=== PATIENT | male | born 1955 | race Caucasian/White ===

== ENCOUNTER 2022-08-28 09:30 | Outpatient (CLI) | payer MEDICARE, SELFPAY ==
--- OUTSIDE RECORDS SUMMARY | 2022-08-28 13:49 | XMS_ITS | Clinical Summary ---
:1955 Author Organization [facility] [place] [address] Care Team Providers Name Role Phone Dotty Matias Primary Care Provider [phone] Allergies No known active allergies Medications No known medications Active Problems Problem Noted Date Ganglion cyst of wrist 08/23/2013 Serrated adenoma of colon 10/19/2012 Herniated cervical disc 03/02/2012 PPD positive 07/02/2011 Immunizations Name Administration Dates Next Due DTaP 08/21/2005 Hepatitis A (Adult) 07/11/2006, 11/08/2005 Inactivated Polio Vaccine 11/08/2005 Influenza A (H1N1), Inactivated (Age 0212/12/2009 >=3 Years) Influenza, IIV3 (Age >=3 years) 08/23/2013, 07/28/2012, 08/11, 08/24/2009 Meningococcal Vaccine 11/08/2005 Tdap 07/08/2013 Typhoid (injectable) 09/04/2011, 11/08/2005 Yellow Fever 11/08/2005 Family History Medical History Relation Name Comments Arthritis Mother Heart Disease Other Relation Name Status Comments Brother Alive 2 Father (Age 64) massive hrt at tack Mother Alive Other Sister Alive 2 Social History Tobacco Use Types Packs/Day Years Used Date Never Smoker Smokeless Tobacco: Former User Chew Q uit: 11/10/1978 Tobacco Cessation: Counseling Given: No Alcohol Use Standard Drinks/Week Comments Yes 4.2 (1 standard drink = 0.6 oz pure alco hol) Sex Assigned at Date Recorded Not on file Obstetrics History Last Filed Vital Signs Vital Sign Reading Time Taken Comments Blood Pressure 146/74 08/23/2013 11:16 AM CDT Pulse 60 08/23/2013 10:39 AM CDT Temperature 36.4 ??C (97.5 ??F) 08/23/2013 10:39 AM CDT Respiratory Rate - - Oxygen Saturation - - Inhaled Oxygen Concentration - - Weight 83.9 kg (185 lb) 08/23/2013 10:39 AM CDT Height 181.6 cm (5' 11.5) 08/23/2013 10:39 AM CDT Body Mass Index 25.45 08/23/2013 10:39 AM CDT Plan of Treatment Health Maintenance Due Date Last Done Comments COVID-19 vaccine series (#1) 04/01/1956 Depression screening for age 12+ 1968 BMI (ht and wt on same day) for 1974 age 18+ Hepatitis C screening for age 1110/02/1974 18-79 Zoster (shingles) series for age 1110/02/2006 50+ (1 of 2) Lipids for age 45-75 07/02/2016 07/02/2011 Pneumococcal series for age 65+ (1 2021 - PCV) Influenza for age 65+ 07/11/2022 08/23/2013, 07/28/2012, 09/04/2011, Additional history exists Colonoscopy through age 75 09/11/2022 09/11/2012 Tetanus booster 07/08/2023 07/08/2013 Tdap Completed 07/08/2013 Results Not on filefrom Last 3 Months Care Teams Merchandiser Retail Representative Relationship Specialty Start Date End Date Dotty Matias PA PCP - General Family Practice 09/04/[address] [place] [address] [place], [place] [address]
--- OUTSIDE RECORDS SUMMARY | 2022-08-28 13:49 | XMS_ITS | Encounter Summary ---
:1955 [facility] [address] [place] [address] Care Team Providers Name Role Phone Unassigned, Provider Primary Care Provider Unavailable Reason for Visit Reason Comments HYPERTENSION Encounter Details Date Type Department Care Team Description 11/05/2017 Office Visit [facility] Patric lala Essential hypertension [address] (Primary Dx) [place] [phone] Social History Tobacco Use Types Packs/Day Years Used Date Smoking Tobacco: Never Smokeless Tobacco: Never Alcohol Use Standard Drinks/Week Comments Yes 2 (1 standard drink = 0.6 oz pure alcoho l) Sex Assigned at Date Recorded Not on file documented as of this encounter Last Filed Vital Signs Vital Sign Reading Time Taken Comments Blood Pressure 145/99 11/05/2017 4:18 PM UNDERWRITING SALES REPRESENTATIVE Pulse 74 11/05/2017 4:18 PM UNDERWRITING SALES REPRESENTATIVE Temperature 36.5 ??C (97.7 ??F) 11/05/2017 4:18 PM UNDERWRITING SALES REPRESENTATIVE Respiratory Rate 16 11/05/2017 4:18 PM UNDERWRITING SALES REPRESENTATIVE Oxygen Saturation - - Inhaled Oxygen Concentration - - Weight - - Height - - Body Mass Index - - documented in this encounter Patient Instructions Patient InstructionsPatty Lucero PA-C - 11/05/2017 4:20 PM CST Consider trying Magnesium 250 mg, once to twice daily ( beware of diarrhea if dose is too high) for high blood pressure. Try following DASH diet. Yaneth will contact you with lab results. RWRITING SALES REPRESENTATIVE documented in this encounter Progress Notes Sebastian Garcia - 11/06/2017 8:17 PM UNDERWRITING SALES REPRESENTATIVE Addended by: SEBASTIAN GARCIA on: 11/06/2017 08:17 PM Modules accepted: Orders RWRITING SALES REPRESENTATIVE Patty Lucero PA-C - 11/05/2017 4:20 PM CST SUBJECTIVE: Jake Cuello is a 62 y.o. male presenting to the [facility] today for a lab draw, recheck ofblood pressure and medications. Office Visit on 10/24/2017 Component Date Value Ref Range Status ??? Creatinine 10/24/2017 1.40* 0.73 - 1.18 mg/dl Final ? ? GFR, Estimated 10/24/2017 54* >60 ml/min/1.73m2 Final Comment: The National Kidney Disease Education Program suggests measuring Cystatin C in patients with eGFRcrea of 45 to 59 ml/min/1.73^2 who do not have other markers of kidney damage (i.e.,elevated urine Albumin/Creatinine Ratio or a prior Cystatin C confirming the presence of Chronic Kidney Disease.) ? ? GFR, Est., If Black 10/24/2017 >60 >60 ml/min/1.73m2 Final ??? Potassium 10/24/2017 4.2 3.5 - 5.1 mmol/L Final ??? Sodium 10/24/2017 138 136 - 145 mmol/L Final ??? HIV 1/2 AG/AB 4thGEN 10/24/2017 Negative (Non Reactive) NEGNR Final HIV-1 p24 Ag and HIV-1/HIV-2 Ab not detected. ??? Anti-HCV 10/24/2017 Negative (Non Reactive) NEGNR Final Comment: Antibodies to HCV not detected. Does not exclude the possibility of exposure to HCV. OBJECTIVE: BP (!) 145/99 Pulse 74 Temp 97.7 ??F (36.5 ??C) (Oral) Resp 16 Examination: no exam performed today. Lab drawn without difficulty. ASSESSMENT: ICD-10-CM 1. Essential hypertension (HRC) I10 PLAN: Lab results to be relayed to patient by Yaneth Flower PA-C, when they are available. Continue on current medications. Consider trying Magnesium 250 mg, once to twice daily ( beware of diarrhea if dose is too high) for high blood pressure. Try following DASH diet. RWRITING SALES REPRESENTATIVE documented in this encounter Plan of Treatment Not on filedocumented as of this encounter Procedures Procedure Name Priority Date/Time Associated Diagnosis Comme nts CREATININE / GFR Routine 11/05/2017 4:20 PM Essential hyperten lissy Results for this UNDERWRITING SALES REPRESENTATIVE procedure are i n the results section. POTASSIUM Routine 11/05/2017 4:20 PM Essential hypertension Results for this UNDERWRITING SALES REPRESENTATIVE procedure are i n the results section. documented in this encounter Results Potassium (11/05/2017 4:20 PM UNDERWRITING SALES REPRESENTATIVE) P athologist Signature Potassium 3.8 3.5 - 5.1 [facility] mmol/L Specimen Anatomical Collection Method Collection Time Receive d Time (Source) Location / / Volume Laterality 11/05/2017 4:20 PM 7 8:26 UNDERWRITING SALES REPRESENTATIVE PM UNDERWRITING SALES REPRESENTATIVE Narrative [facility] - 11/06/2017 8:[address] Performed at [facility], [address] [place] [address] ??[id number] Diane Flower PA-C LAB_1 Performing Organization Address [facility] Phon e Number [facility] [phone] Creatinine / GFR (11/05/2017 4:20 PM UNDERWRITING SALES REPRESENTATIVE) Analysis Performed At Patho logist Time Signature Creatinine 0.98 0.73 - [facility] 1.18 mg/dl [facility] GFR, Estimated >60 >60 [facility] ml/min/1.7 [facility] 3m2 GFR, Est., If >60 >60 [facility] Black ml/min/1.7 [facility] 3m2 Specimen Anatomical Collection Method Collection Time Receive d Time (Source) Location / / Volume Laterality 11/05/2017 4:20 PM 7 8:26 UNDERWRITING SALES REPRESENTATIVE PM UNDERWRITING SALES REPRESENTATIVE Narrative [facility] - 11/06/2017 8:[address] Performed at [facility], [address] [place] [address] ??[id number] Diane Flower PA-C LAB_1 Performing Organization Address City/State/ZIP Code Phon e Number [facility] [phone] documented in this encounter Visit Diagnoses Diagnosis Essential hypertension (HRC) - Primary Unspecified essential hypertension documented in this encounter Care Teams Roll Machine Operator Relationship Specialty Start Date End Date Unassigned, Provider PCP - General 08/13/00 05/31/[address] [place] [phone] documented as of this encounter
--- OUTSIDE RECORDS SUMMARY | 2022-08-28 13:49 | XMS_ITS | Encounter Summary ---
:1955 Author Organization [facility] [facility] Address [address] [address] Care Team Providers Name Role Phone John Meyer MD Primary Care Provider Reason for Visit Reason Comments Refill BP CHECK, SHOT,FLU Encounter Details Date Type Department Care Team Description 07/26/2020 Office Visit [facility] Essential hypertension (Prim maria dolores Dx); [address] [place] [address] Social History Tobacco Use Types Packs/Day Years Used Date Smoking Tobacco: Never Smokeless Tobacco: Never Alcohol Use Standard Drinks/Week Comments Not Currently 0 (1 standard drink = 0.6 oz pure alcoho l) Sex Assigned at Date Recorded Not on file documented as of this encounter Last Filed Vital Signs Vital Sign Reading Time Taken Comments Blood Pressure 122/81 07/26/2020 1:29 PM CDT Pulse 62 07/26/2020 1:28 PM CDT Temperature - - Respiratory Rate - - Oxygen Saturation - - Inhaled Oxygen Concentration - - Weight - - Height - - Body Mass Index - - documented in this encounter Patient Instructions Patient InstructionsDiane Flower PA-C - 07/26/2020 1:20 PM CDT Continue Lisinopril 20 mg-Hydrochlorothiazide 12.5 mg, one tablet once daily. You are due for fasting cholesterol check. If your employer does not check fasting cholesterol this fall, please return to [facility] fasting 12 hours for lab test. Follow up to clinic as needed. Diane Flower PA-C [facility] [address] [place] [address] Appointment Line Phone number: [phone] Fax number: [phone] documented in this encounter Progress Notes Diane Flower PA-C - 07/26/2020 1:20 PM CDT Chief Complaint: Chief Complaint Patient presents with ??? Refill ??? BP CHECK,MD ??? SHOT,FLU HPI: Jake Cuello is a 64 y.o. old male who presents to the [facility] for a blood pressure check. He denies chest pain, SOB, abdominal pain, back pain or leg edema. He is taking Lisinopril 20 mg one tablet once daily and Hydrochlorothiazide 12.5 mg one tablet once daily. He tolerates medications well without problems or complications. He does request refill of both medications combined asone tablet instead of two tablets daily. He states his home blood pressure has been in normal range with most daily readings being in 110-120 range for systolic blood pressure and 80's for diastolic blood pressure. Denies any concerns today. He also presents to the [facility] for a flu shot. Pt denies any allergies to vaccines or recent illness. Pt answered no to all Influenza Vaccine Screening questions. I have reviewed active problem list, medication list, allergies, health maintenance, lab results. Physical Exam: Filed Vitals: 07/26/20 1328 07/26/20 1329 BP: 128/72 122/81 Pulse: 62 2nd reading taken on patient's home blood pressure cuff. Gen: Pt A&O x 3 and appears in no distress. Heart: RRR without murmurs. Lungs: CTA bilaterally, normal respiratory effort. Ext: no leg edema Diagnosis: ICD-10-CM 1. Essential hypertension I10 lisinopril-hydroCHLOROthiazide (PRINZIDE) 20-12.5 MG tablet 2. Needs flu shot Z23 Influenza IIV4 (Quadrivalent) 0.5mL (74993) Assessment/Plan: Blood pressure is at goal. Pt advised to continue taking the medications as prescribed and to returnto this clinic as needed for medication refills or sooner if new symptoms develop. He agreed with the treatment plan. He does want Lisinopril 20 mg - Hydrochlorothiazide 12.5 mg combined as one tablet once daily so newRx was e-prescribed to [facility] pharmacy. Fasting lipid panel is due. Patient states this is done annually by employer. Advised patient to bring results to [facility] or return to [facility] fasting for fasting lipid panel check. Follow up to clinic as needed. Flu vaccine administered in the left deltoid and pt tolerated the procedure well. Vaccine information sheet Given. Discussed common side effects of the injection.??Return to the clinic if unexpected symptoms developor if there are any other concerns. Diagnosis: ICD-10-CM 1. Essential hypertension I10 lisinopril-hydroCHLOROthiazide (PRINZIDE) 20-12.5 MG tablet 2. Needs flu shot Z23 Influenza IIV4 (Quadrivalent) 0.5mL (63046) documented in this encounter Plan of Treatment Not on filedocumented as of this encounter Visit Diagnoses Diagnosis Essential hypertension (HRC) - Primary Unspecified essential hypertension Needs flu shot Need for prophylactic vaccination and in oculation against influenza documented in this encounter Care Teams Professor Of Voice Relationship Specialty Start Date End Date John Meyer MD PCP - General Family Practice 06/01/20 [address] [place] [id number] documented as of this encounter
--- OUTSIDE RECORDS SUMMARY | 2022-08-28 13:49 | XMS_ITS | Encounter Summary ---
:1955 Author Organization [employer] Address [address] [address] Care Team Providers Name Role Phone John Meyer MD Primary Care Provider Reason for Visit Reason Comments QUESTIONS, REFERRAL Encounter Details Date Type Department Care Team Description 07/19/2020 Telephone [facility] Unassigned, Provider QUESTIONS, REFERRAL [address] [address] [place] [address] Social History Tobacco Use Types Packs/Day Years Used Date Smoking Tobacco: Never Smokeless Tobacco: Never Alcohol Use Standard Drinks/Week Comments Not Currently 0 (1 standard drink = 0.6 oz pure alcoho l) Sex Assigned at Date Recorded Not on file documented as of this encounter Nursing Notes Diane Flower PA-C - 07/19/2020 12:01 PM CDT Returned call to patient. Phone number listed states Destination number is not assigned. No answerfrom patient. Voicemail message is not available. Referral orders can be printed and given to patient or can be faxed directly to health care facilityof patient's choosing if fax number is given. Diane Flower PA-C Noam Garvin - 07/19/2020 10:05 AM CDT Miscellaneous Questions [Appt Center: If this call is after 3 p.m., communicate to patient: If we are not able to get back to you by the end of the day and your symptoms worsen please contact the Careline at [phone] OR at .] Is this a question/concern or an FYI? Question/Concern What is your question or concern? PT STATED TWO REFERRALS WERE MADE FOR HIM A WHILE BACK POSS ON OR BEFORE 06/15/2020-- FOR A COLONOSCOPY & DERMATOLOGY DEPARTMENT. PT MISPLACED THE HARD COPY OF THOSE REFERRALS. PT IS REQUESTING FOR ANOTHER HARD COPY OF THOSE REFERRALS. PT IS WILLING TO PICK THEM UP. Have you recently been seen for this? Yes: A WHILE BACK Is it okay to leave a detailed message on your voicemail? Yes Noam Garvin documented in this encounter Plan of Treatment Not on filedocumented as of this encounter Visit Diagnoses Not on filedocumented in this encounter Care Teams Public Health Teacher Relationship Specialty Start Date End Date John Meyer MD PCP - General Family Practice 06/01/20 [address] [place] [phone] documented as of this encounter
--- OUTSIDE RECORDS SUMMARY | 2022-08-28 13:49 | XMS_ITS | Clinical Summary ---
:1955 Author Organization [facility] Address [address] [place] [address] Care Team Providers Name Role Phone John Meyer MD Primary Care Provider Source Comments You are receiving this document as you are listed as the primary care provider,follow-up provider, or the patient has been referred to you for consultation.This is in compliance with the Medicare and Medicaid EHR Incentive Program,which states Providers who transition their patient to another setting of careor provider of care or refers their patient to another provider of care shouldprovide summarycare record for each transition of care or referral. [facility] Allergies No known active allergies Medications Medication Sig Dispensed Refills Start Date End Date Status magnesium oxide (AKA MAG-OX 250 mg two 0 Active 400) 250 MG tablet times a day with meals. ibuprofen (MOTRIN) 200 MG Take 400 mg 0 Active tablet by mouth two times daily as needed for Pain. atorvastatin (LIPITOR) 40 Take 1 Tablet 90 Tablet 3 06/01/2020 Active MG tabletIndications: by mouth Hypercholesterolemia daily. lisinopril-hydroCHLOROthiaz Take 1 Tablet 90 Tablet 3 07/26/20 20 Active darshana (PRINZIDE) 20-12.5 MG by mouth tabletIndications: daily. Essential hypertension (HRC) Active Problems Problem Noted Date Basal cell carcinoma (BCC) of skin of nose 10/30/2020 Overview: Excision 08/2020, per patient Disorder of rotator cuff 09/23/2018 Hypercholesterolemia 10/29/2017 Essential hypertension 10/09/2017 Adenomatous polyp of colon 10/19/2012 Immunizations Name Administration Dates Next Due DTaP 08/21/2005 Flu Vac (3+ yrs) 08/23/2013, 07/28/2012, 09/04/2011, 08/24/2009 Flu Vac Preserv Free (3+yrs) 09/04/2011, 08/24/2009 Fluzone Qiv Multidose Vial 0.25 (6-35 07/23/2016 Mos) HepA Adult (19+ yrs) 07/11/2006, 11/08/2005 Hepatitis B - Surface Antibody 11/09/1995 Positive IPV (Polio) 11/08/2005 Influenza [id number] 12/12/2009 Influenza IIV4 (Quadrivalent) 0.5mL 07/26/2020, 08/18/2019, 07/25/2018, ([id number]) 10/09/2017 Influenza, Unspecified Formulation 07/25/2018 MPSV4 (Menomune) 11/08/2005 Meningococcal MCV4, Unspecified 11/08/2005 Formulation Pfizer (Comirnaty) COVID-19, 12+ Yrs 02/13/2021, 01/23/2021 Purple Top Td 08/21/2005 Tdap 07/08/2013 Typhoid (Typhim Vi, IM) 09/04/2011, 11/08/2005 Typhoid (Vivotif, Oral) 11/08/2005 Typhoid, Unspecified Formulation 11/08/2005 YF (Yellow Fever) 11/08/2005 Zoster RZV (Shingrix) 11/24/2018, 07/25/2018 Family History Medical History Relation Name Comments Coronary Artery Disease Father Relation Name Status Comments Father (Age 64) Myocardial inf arction Social History Tobacco Use Types Packs/Day Years Used Date Smoking Tobacco: Never Smokeless Tobacco: Never Alcohol Use Standard Drinks/Week Comments Not Currently 0 (1 standard drink = 0.6 oz pure alcoho l) Sex Assigned at Date Recorded Not on file Last Filed Vital Signs Vital Sign Reading Time Taken Comments Blood Pressure 132/71 10/30/2020 9:32 AM ANALYSIS EVALUATOR Pulse 43 10/30/2020 9:32 AM ANALYSIS EVALUATOR Temperature 36.5 ??C (97.7 ??F) 11/05/2017 4:18 PM ANALYSIS EVALUATOR Respiratory Rate 16 11/05/2017 4:18 PM ANALYSIS EVALUATOR Oxygen Saturation - - Inhaled Oxygen Concentration - - Weight 82.1 kg (181 lb) 10/30/2020 9:24 AM ANALYSIS EVALUATOR Height 181 cm (5' 11.25) 10/30/2020 9:24 AM ANALYSIS EVALUATOR Body Mass Index 25.07 10/30/2020 9:24 AM ANALYSIS EVALUATOR Plan of Treatment Health Maintenance Due Date Last Done Comments PSA Screening Discussion 1955 Prediabetes: HGBA1C 1955 Colonoscopy 09/11/2017 09/11/2012 (Completed), 09/11/2012 (Completed) COVID-19 Vaccine (3 - 04/10/2021 02/13/2021, 01/23/2021 Booster for Pfizer series) Adult Preventive Visit 06/01/2021 06/01/2020, 06/01/2020 (Completed) Med Monitoring Renal 06/15/2021 06/15/2020, 11/05/2017, (Creatinine) 10/24/2017 Med Monitoring Renal 06/15/2021 06/15/2020, 11/05/2017, (Potassium) 10/24/2017 Med Monitoring Renal 06/15/2021 06/15/2020, 10/24/2017 (Sodium) Pneumococcal 65+ Yrs (1 - 2021 PCV) Cholesterol 10/30/2021 10/30/2020, 08/10/2017 (Completed) Influenza (#1) 2022 07/26/2020, 08/18/2019, 07/25/2018, Additional history exists DTaP/Tdap/Td (2 - Tdap) 07/08/2023 07/08/2013, 08/21/2005, 08/21/2005 IPV (Polio) Aged Out 11/08/2005 No longer eligib le based on patient 's age to complete this topic MCV4 Aged Out 11/08/2005, 11/08/2005 No longer eligible based on patient 's age to complete this topic HepA Aged Out 07/11/2006, 11/08/2005 No longer eligible based on patient 's age to complete this topic Hep C Screening (Preventive Completed 10/24/2017, 10/24/20 17 Services) (Completed) Zoster/Shingles Completed 11/24/2018, 07/25/2018 Hib Aged Out No longer eligib le based on patient 's age to complete this topic [phone] ([address]) [address] [phone] [place] [address] (Work) [id number] Jake Cuello Personal/Family Self 1955 [phone] ([address]) [address] [phone] [place] (Work) [address] Jake Cuello [facility] Self 1955 [address] (Home) [place] [address] [phone] [place] [address] (Work) [id number] Care Teams Spray Applicator Relationship Specialty Start Date End Date John Meyer MD PCP - General Family Practice 06/01/20 [address] [place] [phone]
--- OUTSIDE RECORDS SUMMARY | 2022-08-28 13:49 | XMS_ITS | Encounter Summary ---
:1955 Author Organization [facility] Address [address] [place] [address] Care Team Providers Name Role Phone Unassigned, Provider Primary Care Provider Unavailable Reason for Visit Reason Comments BP CHECK,MD Encounter Details Date Type Department Care Team Description 10/29/2017 Office Visit [facility] Patric lala Essential hypertension (Prim maria dolores Dx); [address] [place] [address] Social History Tobacco Use Types Packs/Day Years Used Date Smoking Tobacco: Never Smokeless Tobacco: Never Alcohol Use Standard Drinks/Week Comments Yes 2 (1 standard drink = 0.6 oz pure alcoho l) Sex Assigned at Date Recorded Not on file documented as of this encounter Last Filed Vital Signs Vital Sign Reading Time Taken Comments Blood Pressure 127/90 10/29/2017 5:16 PM FINISH REPAIR WORKER Pulse 57 10/29/2017 5:16 PM FINISH REPAIR WORKER Temperature - - Respiratory Rate - - Oxygen Saturation - - Inhaled Oxygen Concentration - - Weight - - Height - - Body Mass Index - - documented in this encounter Patient Instructions Patient InstructionsDiane Flower PA-C - 10/29/2017 5:00 PM FINISH REPAIR WORKER Discontinue Lisinopril and Hydrochlorothiazide. Start Triamterene-Hydrochlorothiazide 37.5-25 mg, one tablet once daily. Limit sodium in diet. Aim for 7-9 hours of sleep daily. Due to high cholesterol and high blood pressure, your risk of heart disease is 13.6% in next 10 years. This is significant and it is recommended you also start cholesterol lowering medication. Start Atorvastatin 40 mg, one tablet once daily at bedtime. Return to clinic in one week to recheck blood pressure, medications and lab. Follow up to clinic in one month to refill medications. Follow up to clinic in 3 months to recheck fasting cholesterol. Recommend Routine Health Maintenance. Diane Flower PA-C [facility] [address], [address] [place] [address] Appointment Line Phone number: [phone] Fax number: [phone] SH REPAIR WORKER documented in this encounter Progress Notes Diane Flower PA-C - 10/29/2017 5:00 PM CST SUBJECTIVE: [facility]. Patient had fasting labs done in August 2017 with elevated cholesterol and elevated blood pressure.He presented here 10/09 and was started on Lisinopril 20 mg and then Hydrochlorothiazide was added on 10/24. His creatinine was elevated on 10/24, despite normal Creatinine prior to being on Lisinopril. Blood pressure remains uncontrolled per patient. He denies any problems or concerns however. Deniesheadaches, edema, lightheadedness/dizziness, nausea/vomiting or any other concerns. Allergies, medications and histories reviewed and updated. OBJECTIVE: BP (!) 127/90 Pulse (!) 57 Filed Vitals: 10/29/17 1710 10/29/17 1716 BP: (!) 155/87 (!) 127/90 Pulse: (!) 57 (!) 57 He appears well, in no apparent distress. Alert and oriented times three, pleasant and cooperative. Vital signs are as noted. Normal respiratory effort. No peripheral edema. ASSESSMENT: Jake was seen today for bp checkmd. Diagnoses and all orders for this visit: Essential hypertension (HRC) - triamterene-hydrochlorothiazide (MAXZIDE-25) 37.5-25 MG tablet; Take 1 Tab by mouth daily. - Creatinine / GFR; Future - Potassium; Future Hypercholesterolemia - atorvastatin (LIPITOR) 40 MG tablet; Take 1 Tab by mouth daily. PLAN: Due to blood pressure not controlled and recent increase in Creatinine on Lisinopril, we will discontinue Lisinopril and Hydrochlorothiazide. Start Triamterene-Hydrochlorothiazide 37.5-25 mg, one tablet once daily. #30 tabs dispensed. Encouraged supportive care measures: Limit sodium in diet. Aim for 7-9 hours of sleep daily. Due to high cholesterol and high blood pressure, your risk of heart disease is 13.6% in next 10 years. This is significant and it is recommended you also start cholesterol lowering medication. Start Atorvastatin 40 mg, one tablet once daily at bedtime. #30 tabs dispensed. Return to clinic in one week to recheck blood pressure, medications and lab. Follow up to clinic in one month to refill medications. Follow up to clinic in 3 months to recheck fasting cholesterol. Recommend Routine Health Maintenance. SH REPAIR WORKER documented in this encounter Plan of Treatment Not on filedocumented as of this encounter Results Potassium (11/05/2017 4:20 PM FINISH REPAIR WORKER) athologist Signature Potassium 3.8 3.5 - 5.1 [facility] mmol/L Specimen Anatomical Collection Method Collection Time Receive d Time (Source) Location / / Volume Laterality 11/05/2017 4:20 PM 7 8:26 FINISH REPAIR WORKER PM FINISH REPAIR WORKER Narrative [facility] - 11/06/2017 8:[address] Performed at [facility], [address] [place] [address] ??[phone] Diane Flower PA-C LAB_1 Performing Organization Address City/State/ZIP Code Phon e Number [facility] [phone] Creatinine / GFR (11/05/2017 4:20 PM FINISH REPAIR WORKER) Analysis Performed At Patho logist Time Signature Creatinine 0.98 0.73 - [facility] 1.18 mg/dl [facility] GFR, Estimated >60 >60 [facility] ml/min/1.7 [facility] 3m2 GFR, Est., If >60 >60 [facility] Black ml/min/1.7 [facility] 3m2 Specimen Anatomical Collection Method Collection Time Receive d Time (Source) Location / / Volume Laterality 11/05/2017 4:20 PM 7 8:26 FINISH REPAIR WORKER PM FINISH REPAIR WORKER Narrative [facility] - 11/06/2017 8:[address] Performed at [facility], [address] [place] [address] ??[phone] Diane Flower PA-C LAB_1 Performing Organization Address City/State/ZIP Code Phon e Number [facility] [phone] documented in this encounter Visit Diagnoses Diagnosis Essential hypertension (HRC) - Primary Unspecified essential hypertension Hypercholesterolemia Pure hypercholesterolemia Essential hypertension (HRC) - Primary Unspecified essential hypertension documented in this encounter Care Teams Physician Pediatrician Relationship Specialty Start Date End Date Unassigned, Provider PCP - General 08/13/00 05/31/[address] [place] [id number] documented as of this encounter
--- OUTSIDE RECORDS SUMMARY | 2022-08-28 13:49 | XMS_ITS | Encounter Summary ---
:1955 Author Organization [facility] Address [address] [address] Care Team Providers Name Role Phone Unassigned, Provider Primary Care Provider Unavailable Reason for Visit Reason Comments BP CHECK,MD Encounter Details Date Type Department Care Team Description 11/12/2017 Office Visit [facility] Patric lala Essential hypertension [address] (Primary Dx) [place] [address] Social History Tobacco Use Types Packs/Day Years Used Date Smoking Tobacco: Never Smokeless Tobacco: Never Alcohol Use Standard Drinks/Week Comments Yes 2 (1 standard drink = 0.6 oz pure alcoho l) Sex Assigned at Date Recorded Not on file documented as of this encounter Last Filed Vital Signs Vital Sign Reading Time Taken Comments Blood Pressure 138/93 11/12/2017 4:06 PM WATER/WASTEWATER ENGINEER Pulse 77 11/12/2017 4:06 PM WATER/WASTEWATER ENGINEER Temperature - - Respiratory Rate - - Oxygen Saturation - - Inhaled Oxygen Concentration - - Weight - - Height - - Body Mass Index - - documented in this encounter Progress Notes Diane Flower PA-C - 11/12/2017 3:40 PM CST SUBJECTIVE: Jake Cuello presents to [facility] for blood pressure recheck. History of Hypertension. He started Triamterene-Hydrochlorothiazide 37.5-25 mg, one tablet once daily, 2 weeks ago and presents today to recheck blood pressure. He states he checked his blood pressure once in past two weeks and it was around 135/85 per patient. He is tolerating medication well withoutproblems or concerns. Denies headaches, vision changes, edema, nausea/vomiting, chest pain, lightheadedness, muscle/joint aches or any other concerns today. He otherwise feels well. Allergies, medications and histories reviewed and updated. OBJECTIVE: BP (!) 138/93 Pulse 77 Filed Vitals: 11/12/17 1553 11/12/17 1606 BP: (!) 146/91 (!) 138/93 Pulse: 69 77 He appears well, in no apparent distress. Alert and oriented times three, pleasant and cooperative. Vital signs are as noted. Skin normal. Normal respiratory effort. No peripheral edema. ASSESSMENT: Jake was seen today for bp check,. Diagnoses and all orders for this visit: Essential hypertension (HRC) PLAN: Blood pressure still elevated today. Patient states blood pressure is lower at home. Home cuff was checked with clinic cuff previously and showed to be similar but slightly higher. Patient is to check blood pressure at home everyday. Given blood pressure card for reporting. Return to clinic in one week to recheck blood pressure and review home readings. Patient is still due to routine health maintenance. Discussed establishing care with primary care provider and discussed that if blood pressure remains elevated that we will have to change blood pressure medication. Encouraged return to clinic sooner if needed. R/WASTEWATER ENGINEER documented in this encounter Plan of Treatment Not on filedocumented as of this encounter Visit Diagnoses Diagnosis Essential hypertension (HRC) - Primary Unspecified essential hypertension documented in this encounter Care Teams Seafood Team Member Relationship Specialty Start Date End Date Unassigned, Provider PCP - General 08/13/00 05/31/[address] [place] [id number] documented as of this encounter
--- OUTSIDE RECORDS SUMMARY | 2022-08-28 13:49 | XMS_ITS | Encounter Summary ---
:1955 Author Organization [employer] Address [address], [place] [address] Care Team Providers Name Role Phone Unassigned, Provider Primary Care Provider Unavailable Reason for Visit Reason Comments BP CHECK,MD Encounter Details Date Type Department Care Team Description 11/19/2017 Office Visit [facility] Essential hypertension [address] (Primary Dx) [place] [address] Social History Tobacco Use Types Packs/Day Years Used Date Smoking Tobacco: Never Smokeless Tobacco: Never Alcohol Use Standard Drinks/Week Comments Yes 2 (1 standard drink = 0.6 oz pure alcoho l) Sex Assigned at Date Recorded Not on file documented as of this encounter Last Filed Vital Signs Vital Sign Reading Time Taken Comments Blood Pressure 132/88 11/19/2017 3:47 PM ENGINE EMISSION TECHNICIAN Pulse 64 11/19/2017 3:47 PM ENGINE EMISSION TECHNICIAN Temperature - - Respiratory Rate - - Oxygen Saturation - - Inhaled Oxygen Concentration - - Weight - - Height - - Body Mass Index - - documented in this encounter Patient Instructions Patient InstructionsDiane Flower PA-C - 11/19/2017 3:40 PM ENGINE EMISSION TECHNICIAN Discontinue Triamterene-Hydrochlorothiazide medication. Start Losartan 50 mg, one tablet once daily. Start Hydrochlorothiazide 12.5 mg, one tablet once daily. Take both tablets together in the morning. Return to clinic in one week to recheck blood pressure. Follow up sooner with any problems or concerns. Diane Flower PA-C [email or web address] [address], [address] [place] [address] Appointment Line Phone number: [phone] Fax number: [phone] NE EMISSION TECHNICIAN documented in this encounter Progress Notes Diane Flower PA-C - 11/19/2017 3:40 PM CST SUBJECTIVE: Jake Cuello presents to [facility] for blood pressure check. He has history of Hypertension. He currently takes Triamterene 37.5 mg - Hydrochlorothiazide 25 mg, one tablet once daily. He tolerates medication well but notes blood pressure remains elevated with his blood pressure readings at home being in 140-150 range for systolic blood pressure and diastolic blood pressure being in mid to upper 80's range. He has not noticed a change in blood pressure with taking new medication. He has tried Lisinopril previously but this medication caused lab abnormalities in creatinine/GFR which resolved with discontinuing Lisinopril. Denies headaches, lightheadedness/dizziness, vision changes, nausea/vomiting chest pain or any other symptoms. Allergies, medications and histories reviewed and updated. OBJECTIVE: BP 132/88 Pulse 64 Filed Vitals: 11/19/17 1544 11/19/17 1547 BP: (!) 150/84 132/88 Pulse: (!) 58 64 He appears well, in no apparent distress. Alert and oriented times three, pleasant and cooperative. Vital signs are as noted. Skin normal. Normal respiratory effort. No peripheral edema. ASSESSMENT: Jake was seen today for bp check,. Diagnoses and all orders for this visit: Essential hypertension (HRC) - losartan (COZAAR) 50 MG tablet; Take 1 Tab by mouth daily. PLAN: Discontinue Triamterene-Hydrochlorothiazide medication. Start Losartan 50 mg, one tablet once daily. See EPIC order. Start Hydrochlorothiazide 12.5 mg, one tablet once daily. Patient still has a bottle of this medication at home. Take both tablets together in the morning. Return to clinic in one week to recheck blood pressure. Follow up sooner with any problems or concerns. NE EMISSION TECHNICIAN documented in this encounter Plan of Treatment Not on filedocumented as of this encounter Visit Diagnoses Diagnosis Essential hypertension (HRC) - Primary Unspecified essential hypertension documented in this encounter Care Teams Integrated Logistics Support Manager Relationship Specialty Start Date End Date Unassigned, Provider PCP - General 08/13/00 05/31/[address] [place] [id number] documented as of this encounter
--- OUTSIDE RECORDS SUMMARY | 2022-08-28 13:49 | XMS_ITS | Encounter Summary ---
:1955 Author Organization [employer] Address [address], [place] [address] Care Team Providers Name Role Phone Unassigned, Provider Primary Care Provider Unavailable Reason for Visit Reason Comments BP CHECK,MD Encounter Details Date Type Department Care Team Description 10/24/2017 Office Visit [facility] Patric lala Essential hypertension (Prim maria dolores Dx); [address] Screening for human immunode ficiency virus; [place] [address] Need for hepatitis C screeni ng test [phone] Social History Tobacco Use Types Packs/Day Years Used Date Smoking Tobacco: Never Smokeless Tobacco: Never Alcohol Use Standard Drinks/Week Comments Yes 2 (1 standard drink = 0.6 oz pure alcoho l) Sex Assigned at Date Recorded Not on file documented as of this encounter Last Filed Vital Signs Vital Sign Reading Time Taken Comments Blood Pressure 134/86 10/24/2017 2:36 PM AGRICULTURE SALES ACCOUNT MANAGER Pulse 60 10/24/2017 2:36 PM AGRICULTURE SALES ACCOUNT MANAGER Temperature - - Respiratory Rate - - Oxygen Saturation - - Inhaled Oxygen Concentration - - Weight - - Height - - Body Mass Index - - documented in this encounter Patient Instructions Patient InstructionsDiane Flower PA-C - 10/24/2017 2:20 PM AGRICULTURE SALES ACCOUNT MANAGER Start Hydrochlorothiazide 12.5 mg, one tablet once daily. Continue Lisinopril 20 mg, one tablet once daily. Take medications together. Labs pending. You will be notified by phone with any lab abnormalities. Continue low sodium diet. Check blood pressure daily at home. Return to clinic in 1-2 weeks to recheck blood pressure. Return to clinic sooner if needed. Diane Flower PA-C [facility] [address], [address] [place] [address] Appointment Line Phone number: [phone] Fax number: [phone] CULTURE SALES ACCOUNT MANAGER documented in this encounter Progress Notes Leana Larsen - 10/24/2017 8:23 PM AGRICULTURE SALES ACCOUNT MANAGER Addended by: LEANA LARSEN on: 10/24/2017 08:23 PM Modules accepted: Orders CULTURE SALES ACCOUNT MANAGER Diane Flower PA-C - 10/24/2017 2:20 PM CST SUBJECTIVE: [facility]. History of Hypertension. He takes Lisinopril 20 mg, one tablet once daily. He started medication twoweeks ago and tolerates medication well without problems or concerns. He has been checking blood pressure at home and states his readings have been in 140-145/80's range. He denies headaches, lightheadedness, cough, edema, nausea/vomiting, vision changes or any other concerns today. Allergies, medications and histories reviewed and updated. OBJECTIVE: BP (!) 150/84 Pulse (!) 56 Checked blood pressure on patient's cuff at same time as clinic check: 156/90 Filed Vitals: 10/24/17 1419 10/24/17 1436 BP: (!) 150/84 134/86 Pulse: (!) 56 60 He appears well, in no apparent distress. Alert and oriented times three, pleasant and cooperative. Vital signs are as noted. Skin without rashes with normal skin turgor. Normal respiratory effort. No peripheral edema. ASSESSMENT: Jake was seen today for bp check,. Diagnoses and all orders for this visit: Essential hypertension (HRC) - Creatinine / GFR; Future - Potassium; Future - Sodium; Future - hydroCHLOROthiazide 12.5 MG capsule; Take 1 Cap by mouth daily. Screening for human immunodeficiency virus - HIV 1/2 Ag/Ab 4th Generation; Future Need for hepatitis C screening test - Hepatitis C Antibody, with Reflex; Future PLAN: Start Hydrochlorothiazide 12.5 mg, one tablet once daily. Dispensed #30 tabs. Continue Lisinopril 20 mg, one tablet once daily. Take medications together. Labs pending. You will be notified by phone with any lab abnormalities. Continue low sodium diet. Check blood pressure daily at home. Return to clinic in 1-2 weeks to recheck blood pressure. Return to clinic sooner if needed. CULTURE SALES ACCOUNT MANAGER documented in this encounter Plan of Treatment Not on filedocumented as of this encounter Procedures Procedure Name Priority Date/Time Associated Diagnosis Comme nts HIV 1/2 AG/AB 4TH Routine 10/24/2017 2:20 Screening for human Results for this GEN PM AGRICULTURE SALES ACCOUNT MANAGER immunodeficiency virus proce dure are in the results section. CREATININE / GFR Routine 10/24/2017 2:20 Essential hypertensio n Results for this PM AGRICULTURE SALES ACCOUNT MANAGER procedure are i n the results section. HEPATITIS C Routine 10/24/2017 2:20 Results for this ANTIBODY, WITH PM AGRICULTURE SALES ACCOUNT MANAGER procedure are in REFLEX the results section. SODIUM Routine 10/24/2017 2:20 Essential hypertension Re sults for this PM AGRICULTURE SALES ACCOUNT MANAGER procedure are i n the results section. POTASSIUM Routine 10/24/2017 2:20 Essential hypertension Re sults for this PM AGRICULTURE SALES ACCOUNT MANAGER procedure are i n the results section. documented in this encounter Results Hepatitis C Antibody, with Reflex (10/24/2017 2:20 PM AGRICULTURE SALES ACCOUNT MANAGER) [facility] Method Time Signature Anti-HCV Negative (Non NEGNR [facility] Comment: Antibodies to HCV not detected. Does not exclude the possibility of exposure to HCV. Specimen Anatomical Collection Method Collection Time Receive d Time (Source) Location / / Volume Laterality 10/24/2017 2:20 PM 7 8:27 AGRICULTURE SALES ACCOUNT MANAGER PM AGRICULTURE SALES ACCOUNT MANAGER Narrative [facility] - 10/24/2017 9:[address] Performed at [facility], [address] [place] [phone] Diane Flower PA-C LAB_1 Performing Organization Address City/State/ZIP Code Phon e Number [facility] [phone] HIV 1/2 Ag/Ab 4th Generation (10/24/2017 2:20 PM AGRICULTURE SALES ACCOUNT MANAGER) [facility] gist Method Time Signature HIV 1/2 AG/AB Negative NEGNR [facility] 4thGEN (Non LABORATORIES Reactive) Comment: HIV-1 p24 Ag and HIV-1/HIV-2 Ab not detected. Specimen Anatomical Collection Method Collection Time Receive d Time (Source) Location / / Volume Laterality 10/24/2017 2:20 PM 7 8:27 AGRICULTURE SALES ACCOUNT MANAGER PM AGRICULTURE SALES ACCOUNT MANAGER Narrative [facility] - 10/24/2017 9:[address] Performed at [facility], [address] [place] [address] ??[phone] Diane Flower PA-C LAB_1 Performing Organization Address City/[facility] Phon e Number [facility] [phone] Sodium (10/24/2017 2:20 PM AGRICULTURE SALES ACCOUNT MANAGER) athologist Signature Sodium 138 136 - 145 [facility] mmol/L Specimen Anatomical Collection Method Collection Time Receive d Time (Source) Location / / Volume Laterality 10/24/2017 2:20 PM 7 8:26 AGRICULTURE SALES ACCOUNT MANAGER PM AGRICULTURE SALES ACCOUNT MANAGER Narrative [facility] - 10/24/2017 9:[address] Performed at [address] ??[phone] Diane Flower PA-C LAB_1 Performing Organization Address City/[facility]/ZIP [facility] Phon e Number [facility] [phone] Potassium (10/24/2017 2:20 PM AGRICULTURE SALES ACCOUNT MANAGER) athologist Signature Potassium 4.2 3.5 - 5.1 [facility] mmol/L Specimen Anatomical Collection Method Collection Time Receive d Time (Source) Location / / Volume Laterality 10/24/2017 2:20 PM 7 8:26 AGRICULTURE SALES ACCOUNT MANAGER PM AGRICULTURE SALES ACCOUNT MANAGER Narrative [facility] - 10/24/2017 9:[address] Performed at [facility], [address] [place] [phone] Diane Flower PA-C LAB_1 Performing Organization Address City/[facility]/ZIP Code Phon e Number [facility] [phone] (ABNORMAL) Creatinine / GFR (10/24/2017 2:20 PM AGRICULTURE SALES ACCOUNT MANAGER) [facility] gist Method Time Signature Creatinine 1.40 (H) 0.73 - [facility] 1.18 [facility] mg/dl GFR, Estimated 54 (L) >60 [facility] ml/min/1. [facility] 73m2 Comment: The National Kidney Disease Education Pr ogram suggests measuring Cystatin C in patients with eGFRcrea of 45 to 59 ml/min/1.73^2 who do not have other markers of kidney damage (i.e.,elevated urine Albumin/Creatinine Ratio or a prior Cys tatin C confirming the presence of Chronic Kidney Disease.) GFR, Est., If Black >60 >60 ml/min/1.73m2 [facility] Specimen Anatomical Collection Method Collection Time Receive d Time (Source) Location / / Volume Laterality 10/24/2017 2:20 PM 7 8:26 AGRICULTURE SALES ACCOUNT MANAGER PM AGRICULTURE SALES ACCOUNT MANAGER Narrative [facility] - 10/24/2017 9:[address] Performed at [facility], [address] [place] [address] ??[phone] Diane Flower PA-C LAB_1 Performing Organization Address City/State/ZIP Code Phon e Number [facility] [phone] documented in this encounter Visit Diagnoses Diagnosis Essential hypertension (HRC) - Primary Unspecified essential hypertension Screening for human immunodeficiency vir us Special screening examination for other specified viral diseases Need for hepatitis C screening test Special screening examination for other specified viral diseases documented in this encounter Care Teams Environmental Specialist Relationship Specialty Start Date End Date Unassigned, Provider PCP - General 08/13/00 05/31/[address] [place] [phone] documented as of this encounter
--- OUTSIDE RECORDS SUMMARY | 2022-08-28 13:49 | XMS_ITS | Encounter Summary ---
:1955 Author Organization [facility] Address [address] [place] [address] Care Team Providers Name Role Phone John Meyer MD Primary Care Provider Reason for Referral Consult/Transfer Care (Routine) - Incomplete Specialty Diagnoses / Procedures Referred By Contact Refer red To Contact Diagnoses Non-healing skin lesion of nose Diane Flower PA-C [address] [place] [id number] Referral ID Status Reason Start Date Expiration Date Visits V isits Requested Authorized [id number] Incomplete 06/01/2020 11/28/2020 1 1 Scheduling Instructions This order is your clinician's recommend ation for a service and is not an insurance referral which authorizes payment. The r ecommended service and/or location may not be covered by your insurance plan. Please c all the number on your insurance card to find out your specific benefits and coverage for the recommended services and/or location. If you need help scheduling the recommen ded services, please ask your clinician's staff to assist you. Procedure/Equipment (Routine) - Incomplete Specialty Diagnoses / Procedures Referred By Contact Refer red To Contact Diagnoses Encounter for screening for malignant neoplasm of colon Diane Flower PA-C [address] [place] [address] Referral ID Status Reason Start Date Expiration Date Visits V isits Requested Authorized [id number] Incomplete 06/01/2020 11/28/2020 1 1 Scheduling Instructions This order is your clinician's recommend ation for a service and is not an insurance referral which authorizes payment. The r ecommended service and/or location may not be covered by your insurance plan. Please c all the number on your insurance card to find out your specific benefits and coverage for the recommended services and/or location. If you need help scheduling the recommen ded services, please ask your clinician's staff to assist you. Reason for Visit Reason Comments ROUTINE HEALTH MAINTENANCE Encounter Details Date Type Department Care Team Description 06/01/2020 Office Visit [facility] Patric lala Preventative health care (Pr imary Dx); [address] Encounter for screening for malignant neoplasm of colon; DUR[place] Marie Non-healing ski n lesion of nose; [id number] Essential hypertension; [phone] Hypercholestero lemia Social History Tobacco Use Types Packs/Day Years Used Date Smoking Tobacco: Never Smokeless Tobacco: Never Alcohol Use Standard Drinks/Week Comments Not Currently 0 (1 standard drink = 0.6 oz pure alcoho l) Sex Assigned at Date Recorded Not on file documented as of this encounter Last Filed Vital Signs Vital Sign Reading Time Taken Comments Blood Pressure 165/86 06/01/2020 2:44 PM CDT Pulse 47 06/01/2020 2:44 PM CDT Temperature - - Respiratory Rate - - Oxygen Saturation - - Inhaled Oxygen Concentration - - Weight 82.1 kg (181 lb) 06/01/2020 2:03 PM CDT Height 180.3 cm (5' 11) 06/01/2020 2:03 PM CDT Body Mass Index 25.24 06/01/2020 2:03 PM CDT documented in this encounter Patient Instructions Patient InstructionsDiane Flower PA-C - 06/01/2020 2:00 PM CDT Images from the original note were not included. High Blood Pressure Start Lisinopril 20 mg, one tablet once daily. Follow up to have blood pressure rechecked and labs rechecked in 2-4 weeks. Check blood pressure daily at home. Return to clinic sooner if needed. High Cholesterol and Risk of Heart Disease Start Atorvastatin 40 mg, one tablet once daily at bedtime. Follow up to have cholesterol rechecked and medication dose checked in 2-3 months. Follow up sooner if needed. Skin lesion of nose Recommend follow up with Dermatology to further evaluate skin lesion. Order placed and printed out at appointment. If you need order faxed to Dermatology, please find a fax a number and give to [facility] clinic provider. Recommend follow up for Colonoscopy. Order placed and printed out at appointment. If you need order faxed, please find a fax a number and give to [facility] clinic provider. Recommend annual eye exam. Start exercise, recommend 30-60 minutes most days of the week. Start eating healthy, recommend increasing fruits and vegetables (aim for 5 servings per day). Follow up to clinic as needed for health concerns. Diane Flower PA-C [email or web address] [address] [place] [id number] Appointment Line Phone number: [phone] Fax number: [phone] Well Visit, Men 50 to 65: Care Instructions Your Care Instructions Physical exams can help you stay healthy. Your doctor has checked your overall health and may have suggested ways to take good care of yourself. He or she also may have recommended tests. At home, you can help prevent illness with healthy eating, regular exercise, and other steps. Follow-up care is a johnson part of your treatment and safety. Be sure to make and go to all appointments, and call your doctor if you are having problems. It's also a good idea to know your test results and keep a list of the medicines you take. How can you care for yourself at home? ?? Reach and stay at a healthy weight. This will lower your risk for many problems, such as obesity,diabetes, heart disease, and high blood pressure. ?? Get at least 30 minutes of exercise on most days of the week. Walking is a good choice. You also may want to do other activities, such as running, swimming, cycling, or playing tennis or team sports. ?? Do not smoke. Smoking can make health problems worse. If you need help quitting, talk to your doctor about stop-smoking programs and medicines. These can increase your chances of quitting for good. ?? Protect your skin from too much sun. When you're outdoors from 10 a.m. to 4 p.m., stay in the shade or cover up with clothing and a hat with a wide brim. Wear sunglasses that block UV rays. Even when it's cloudy, put broad-spectrum sunscreen (SPF 30 or higher) on any exposed skin. ?? See a dentist one or two times a year for checkups and to have your teeth cleaned. ?? Wear a seat belt in the car. Follow your doctor's advice about when to have certain tests. These tests can spot problems early. ?? Cholesterol. Your doctor will tell you how often to have this done based on your overall health and other things that can increase your risk for heart attack and stroke. ?? Blood pressure. Have your blood pressure checked during a routine doctor visit. Your doctor will tell you how often to check your blood pressure based on your age, your blood pressure results, and other factors. ?? Prostate exam. Talk to your doctor about whether you should have a blood test (called a PSA test)for prostate cancer. Experts recommend that you discuss the benefits and risks of the test with yourdoctor before you decide whether to have this test. ?? Diabetes. Ask your doctor whether you should have tests for diabetes. ?? Vision. Some experts recommend that you have yearly exams for glaucoma and other age-related eye problems starting at age 50. ?? Hearing. Tell your doctor if you notice any change in your hearing. You can have tests to find out how well you hear. ?? Colorectal cancer. Your risk for colorectal cancer gets higher as you get older. Some experts saythat adults should start regular screening at age 50 and stop at age 75. Others say to start before age 50 or continue after age 75. Talk with your doctor about your risk and when to start and stop screening. ?? Heart attack and stroke risk. At least every 4 to 6 years, you should have your risk for heart attack and stroke assessed. Your doctor uses factors such as your age, blood pressure, cholesterol, andwhether you smoke or have diabetes to show what your risk for a heart attack or stroke is over the next 10 years. ?? Abdominal aortic aneurysm. Ask your doctor whether you should have a test to check for an aneurysm. You may need a test if you ever smoked or if your parent, brother, sister, or child has had an aneurysm. When should you call for help? Watch closely for changes in your health, and be sure to contact your doctor if you have any problems or symptoms that concern you. Where can you learn more? 1. Go to [email or web address] [email or web address] or [employer]. 2. Enter K916 in the search box. Current as of: June 30, 2019?Content Version: 12.4 ?? [employer]. Care instructions adapted under license by your healthcare professional. If you have questions abouta medical condition or this instruction, always ask your healthcare professional. [employer] disclaims any warranty or liability for your use of this information. documented in this encounter Progress Notes Diane Flower PA-C - 06/01/2020 2:00 PM CDT Routine Health Maintenance: Historical: Jake Cuello is a 64 y.o. old male Chief Complaint Patient presents with ??? ROUTINE HEALTH MAINTENANCE Current concerns: History of Hypertension and wants to re-start medication for Hypertension. In the past he has taken Lisinopril, Losartan and Triamterene-Hydrochlorothiazide for blood pressure. He currently is taking his 's blood pressure medication off and on per patient. She takes Lisinopril 20 mg per patient and he doesn't take it often per his report. He has history of Hypercholesterolemia and is not currently taking medication. His dad of heartattack at age 64 so patient is concerned about his risk of heart disease as well. He states his current diet could be improved and he is exercising infrequently at this time. He also notes a sore on his nose that isn't healing. It's been present for about a year and states it continues to be present without every fully resolving. Currently he notes it is looking better but then it will start worsening and drain pus at times. Denies pain, itching, injury or any other s kin rashes or skin problems. No other concerns today per patient. Diet, fruits/ vegetables: 0-1 serving each day, feels he eats healthy otherwise, limits fat Present exercise habits: infrequent exercise Do you have any concerns about your hearing? YES, feels he doesn't hear as well. Review of Systems CONSTITUTIONAL: No:, Change in appetite, Change in energy and change in weight EYES: no visual blurring, no double vision, no glaucoma, no cataracts, no eye pain, no color blindness, wears glasses and has regular eye exams, he states his eye prescription changed 2 years ago and he is due for annual eye exam. ENT: no abnormally frequent URIs, no bleeding gums, no dental problems, no persistently sore throat,no sinus problems, no tinnitus, no vertigo RESPIRATORY: no shortness of breath, no cough, no sputum CARDIOVASCULAR: no palpitations, no irregular heart beats, no chest pain, no exertional chest pain or pressure, no paroxysmal nocturnal dyspnea, no orthopnea, no lower extremity edema GASTROINTESTINAL: normal appetite, no dysphagia, no nausea, no heartburn or reflux, no abdominal pain, no melena. History of hemorrhoids and bright red blood with wiping in the past but denies problemswith hemorrhoids currently. GENITOURINARY: no dysuria, no frequency, no hematuria, no nocturia MUSCULOSKELETAL: no weakness, no nocturnal cramping, no muscle pains SKIN: no rash, no itch, no scaling, no hair changes, no nail changes. Patient complains of spot on nose that never seems to heal describes as hole occasionally has pus, denies pain or itching. NEUROLOGIC: no headaches, no numbness or tingling of hands, no numbness or tingling of feet, no syncope PSYCHIATRIC: no sleep disturbances, no anxiety, no depression HEMATOLOGIC/LYMPHATIC/IMMUNOLOGIC: no fevers, no night sweats, no chills, no weight loss ENDOCRINE: no cold intolerance, no heat intolerance, no polyuria, no polydypsia, no polyphagia Last PHQ-2 Score: 0 Father of heart attack at age 64. I have reviewed the medical, surgical, family and social histories. Observed: BP (!) 165/86 (BP Location: Right Arm, BP Cuff Size: Regular) Pulse (!) 47 Ht 5' 11 (1.803 m) Wt 181 lb (82.1 kg) BMI 25.24 kg/m?? Filed Vitals: 06/01/20 1403 06/01/20 1444 BP: (!) 162/84 (!) 165/86 Pulse: (!) 50 (!) 47 Weight: 181 lb (82.1 kg) Height: 5' 11 (1.803 m) General: Appears stated age, alert and comfortable HEENT: normal eyes, ears, throat, oropharynx Neck: thyroid normal Lungs: clear to auscultation, no wheezes or rales. Normal respiratory effort. CV: regular rate and rhythm, normal S1 and S2 without murmur or click Abd: Soft, non-tender, no masses, no hepatomegaly or splenomegaly. : not examined Skin: On bridge of nose, there is 3 mm non-healing sore. No current erythema, tenderness, drainage, induration, fluctuance. No other skin rashes or skin abnormalities noted. ASCVD 10 year risk based on demographics, uncontrolled BP not treated on medication and lab results from recent health risk assessment from work: 19.6% Labs from Health Risk Assessment from work from 08/13/2019 were brought to appointment and will be scanned into patient chart. Total cholesterol: 234 LDL: 167 HDL: 46 Triglyceride: 106 Glucose: 98 BUN: 13 Creatinine: 1 GGT, Bilirubin, AST, ALT, Alkaline phosphatase, Total protein, Albumin, Globulin all within normal range. Assessment/Plan: ICD-10-CM 1. Preventative health care Z00.00 2. Encounter for screening for malignant neoplasm of colon Z12.11 COLONOSCOPY- PREVENTIVE (V76.51) 3. Non-healing skin lesion of nose L98.9 Dermatology Consult-Adult/Peds 4. Essential hypertension I10 lisinopril (ZESTRIL) 20 MG tablet 5. Hypercholesterolemia E78.00 atorvastatin (LIPITOR) 40 MG tablet High Blood Pressure Start Lisinopril 20 mg, one tablet once daily. Follow up to have blood pressure rechecked and labs rechecked in 2-4 weeks. Check blood pressure daily at home. Return to clinic sooner if needed. High Cholesterol and Risk of Heart Disease Start Atorvastatin 40 mg, one tablet once daily at bedtime. Follow up to have cholesterol rechecked and medication dose checked in 2-3 months. Follow up sooner if needed. Skin lesion of nose Recommend follow up with Dermatology to further evaluate skin lesion and rule out BCC and SCC. Order placed and printed out at appointment. If you need order faxed to Dermatology, please find a fax a number and give to [facility] clinic provider. Recommend follow up for Colonoscopy. Order placed and printed out at appointment. If you need order faxed, please find a fax a number and give to [facility] clinic provider. Recommend annual eye exam. Advised supportive care measures for general health. Start exercise, recommend 30-60 minutes most days of the week. Start eating healthy, recommend increasing fruits and vegetables (aim for 5 servings per day). Follow up to clinic as needed for health concerns. Patient counseled: -healthy diet -increasing physical activity documented in this encounter Plan of Treatment Scheduled Referrals Name Type Priority Associated Diagnoses Order S chedule COLONOSCOPY-PREVENTIVE Referral Routine Encounter for scre ening Ordered: 06/01/2020 (V76.51) for malignant neoplasm of colon Dermatology Referral Routine Non-healing skin lesion Orde red: 06/01/2020 Consult-Adult/Peds of nose documented as of this encounter Visit Diagnoses Diagnosis Preventative health care - Primary Routine general medical examination at a health care facility Encounter for screening for malignant ne oplasm of colon Special screening for malignant neoplasm s, colon Non-healing skin lesion of nose Other diseases of nasal cavity and sinus es Essential hypertension (HRC) Unspecified essential hypertension Hypercholesterolemia Pure hypercholesterolemia documented in this encounter Care Teams Paper Guillotine Operator Relationship Specialty Start Date End Date John Meyer MD PCP - General Family Practice 06/01/20 [place] [address] documented as of this encounter
--- OUTSIDE RECORDS SUMMARY | 2022-08-28 13:49 | XMS_ITS | Encounter Summary ---
:1955 Author Organization [facility] Address [address] [place] [address] Care Team Providers Name Role Phone John Meyer MD Primary Care Provider Reason for Visit Reason Comments Disease Registry Encounter Details Date Type Department Care Team Description 04/13/2021 Telephone [facility] Diane Almendarez, Disease Registry [address] [place] [address] [place] [address] [place] [address] (Wo rk) Social History Tobacco Use Types Packs/Day Years Used Date Smoking Tobacco: Never Smokeless Tobacco: Never Alcohol Use Standard Drinks/Week Comments Not Currently 0 (1 standard drink = 0.6 oz pure alcoho l) Sex Assigned at Date Recorded Not on file documented as of this encounter Nursing Notes Diane Flower PA-C - 04/13/2021 10:06 AM CDT Jake Cuello was contacted today regarding Registry for Health Maintenance. Health Maintenance Due Topic Date Due ??? Prediabetes: HGBA1C Never done ??? Colonoscopy 09/11/2017 Left message that patient can make phone or video appt with [facility] by calling the AC if needed. Diane Flower PA-C documented in this encounter Plan of Treatment Not on filedocumented as of this encounter Visit Diagnoses Not on filedocumented in this encounter Care Teams Superintendent [employer]munition Storage Relationship Specialty Start Date End Date John Meyer MD PCP - General Family Practice 06/01/20 [address] [place] [address] documented as of this encounter
--- OUTSIDE RECORDS SUMMARY | 2022-08-28 13:49 | XMS_ITS | Encounter Summary ---
:1955 Author Organization [email or web address] Address [address], [place] [address] Care Team Providers Name Role Phone John Meyer MD Primary Care Provider Reason for Visit Reason Comments Biometrics Screening Encounter Details Date Type Department Care Team Description 10/30/2020 Office Visit [facility] Patric Das Encounter for biometric scre ening (Primary Dx); [address] [facility] Hypercholesterolemia; [place] [address] Essential hypertension [phone] Social History Tobacco Use Types Packs/Day Years Used Date Smoking Tobacco: Never Smokeless Tobacco: Never Alcohol Use Standard Drinks/Week Comments Not Currently 0 (1 standard drink = 0.6 oz pure alcoho l) Sex Assigned at Date Recorded Not on file documented as of this encounter Last Filed Vital Signs Vital Sign Reading Time Taken Comments Blood Pressure 132/71 10/30/2020 9:32 AM DIGITAL MEDIA SALES CONSULTANT Pulse 43 10/30/2020 9:32 AM DIGITAL MEDIA SALES CONSULTANT Temperature - - Respiratory Rate - - Oxygen Saturation - - Inhaled Oxygen Concentration - - Weight 82.1 kg (181 lb) 10/30/2020 9:24 AM DIGITAL MEDIA SALES CONSULTANT Height 181 cm (5' 11.25) 10/30/2020 9:24 AM DIGITAL MEDIA SALES CONSULTANT Body Mass Index 25.07 10/30/2020 9:24 AM DIGITAL MEDIA SALES CONSULTANT documented in this encounter Progress Notes Diane Flower PA-C - 10/30/2020 9:00 AM CST Chief Complaint: Chief Complaint Patient presents with ??? Biometrics Screening HPI: Jake Cuello is a 65 y.o. old male who presents to the [facility] for Biometric Screening. Patient has been fasting at least 12 hours today. He has history of Hyperlipidemia and takes Atorvastatin 40 mg once daily. He also has history of Hypertension and takes Lisinopril-Hydrochlorothiazide 20-12.5 mg daily. I have reviewed active problem list, medication list, allergies, health maintenance, [facility], lab results. Physical Exam: BP 132/71 (BP Location: Right Arm, BP Cuff Size: Regular) Pulse (!) 43 Ht 5' 11.25 (1.81 m) Wt 181 lb (82.1 kg) BMI 25.07 kg/m?? Estimated body mass index is 25.07 kg/m?? as calculated from the following: Height as of this encounter: 5' 11.25 (1.81 m). Weight as of this encounter: 181 lb (82.1 kg). He appears well, in no apparent distress. Alert and oriented, pleasant and cooperative. Normal respiratory effort. No peripheral edema. Assessment/Plan: Venipuncture performed and blood samples obtained. Pt tolerated the procedure well. We will review results of these lab tests on MyChart or by phone tomorrow. Patient states it is ok to leave detailed voicemail with lab results on mobile phone. Follow up to clinic as needed. Diagnosis: ICD-10-CM 1. Encounter for biometric screening Z00.8 Lipid Panel and Direct LDL(If Needed) Glucose Lipid Panel and Direct LDL(If Needed) Glucose CANCELED: Lipid+Glucose Screen,Point Of Care 2. Hypercholesterolemia E78.00 Lipid Panel and Direct LDL(If Needed) Lipid Panel and Direct LDL(If Needed) 3. Essential hypertension (HRC) I10 TAL MEDIA SALES CONSULTANT documented in this encounter Plan of Treatment Not on filedocumented as of this encounter Procedures Procedure Name Priority Date/Time Associated Diagnosis Comme nts LIPID PANEL AND Routine 10/30/2020 9:28 AM Encounter for Resul ts for this DIRECT LDL(IF DIGITAL MEDIA SALES CONSULTANT biometric screen ing procedure are in NEEDED) Hypercholesterolemia the res ults section. GLUCOSE Routine 10/30/2020 9:28 AM Encounter for Results for this DIGITAL MEDIA SALES CONSULTANT biometric screening procedur e are in the results section. documented in this encounter Results (ABNORMAL) Glucose (10/30/2020 9:28 AM DIGITAL MEDIA SALES CONSULTANT) P athologist Signature Glucose 106 (H) 70 - 100 10/30/2020 [facility] mg/dL 8:27 PM DIGITAL MEDIA SALES CONSULTANT [facility] Comment: The given reference range is fo r the fasting state. Non-fasting reference range for glucose is 70 - 180 mg/dL. Hours Fasting 12 10/30/2020 8:27 PM DIGITAL MEDIA SALES CONSULTANT [facility] [place] Specimen Anatomical Collection Method / Collection Time Recei adriana Time (Source) Location / Volume Laterality Blood Venipuncture / 10/30/2020 9:28 10/30/2020 9:28 Unknown AM DIGITAL MEDIA SALES CONSULTANT AM DIGITAL MEDIA SALES CONSULTANT Diane Flower PA-C LAB_1 Performing Organization Address City/[facility]/ZIP Code Phon e Number [facility] [address] [address] [facility] [address] [address] [phone] Lipid Panel and Direct LDL(If Needed) (10/30/2020 9:28 AM DIGITAL MEDIA SALES CONSULTANT) Patholo gist Method Time Signature Cholesterol 143 0 - 199 10/30/2020 [facility] mg/dL 8:27 PM DIGITAL MEDIA SALES CONSULTANT [facility] Triglyceride 65 <=149 10/30/2020 [facility] mg/dL 8:27 PM DIGITAL MEDIA SALES CONSULTANT [facility] HDL Cholesterol 50 >=40 10/30/2020 [facility] mg/dL 8:27 PM DIGITAL MEDIA SALES CONSULTANT [facility] LDL, Calculated 80 <130 10/30/2020 [facility] mg/dL 8:27 PM DIGITAL MEDIA SALES CONSULTANT [facility] Non HDL Chol, 93 mg/dL 10/30/2020 [facility] Calculated 8:27 PM DIGITAL MEDIA SALES CONSULTANT [facility] Cholesterol/HDL 2.9 10/30/2020 [facility] Ratio 8:27 PM DIGITAL MEDIA SALES CONSULTANT [facility] Hours Fasting 12 10/30/2020 [facility] RE D 8:27 PM DIGITAL MEDIA SALES CONSULTANT WING Specimen Anatomical Collection Method / Collection Time Recei adriana Time (Source) Location / Volume Laterality Blood Venipuncture / 10/30/2020 9:28 10/30/2020 9:28 Unknown AM DIGITAL MEDIA SALES CONSULTANT AM DIGITAL MEDIA SALES CONSULTANT Diane Flower PA-C LAB_1 Performing Organization Address City/[facility]/ZIP Code Phon e Number [facility] [address] [place] [address] [facility] [address] [place] [address], [facility] [[email or web address]] [phone] documented in this encounter Visit Diagnoses Diagnosis Encounter for biometric screening - Prim maria dolores Hypercholesterolemia Pure hypercholesterolemia Essential hypertension (HRC) Unspecified essential hypertension documented in this encounter Care Teams Cyber Crime Investigator Relationship Specialty Start Date End Date John Meyer MD PCP - General Family Practice 06/01/20 [address] [place] [address] documented as of this encounter
--- OUTSIDE RECORDS SUMMARY | 2022-08-28 13:49 | XMS_ITS | Encounter Summary ---
:1955 Author Organization [employer] [facility] Address [address], [place] [address] Care Team Providers Name Role Phone John Meyer MD Primary Care Provider Reason for Visit Reason Comments MEDICATION CHECK BP CHECK, LAB TESTS, NOS Encounter Details Date Type Department Care Team Description 06/15/2020 Office Visit [facility] Essential hypertension (Prim maria dolores Dx); [address] [place] [address] Social History Tobacco Use Types Packs/Day Years Used Date Smoking Tobacco: Never Smokeless Tobacco: Never Alcohol Use Standard Drinks/Week Comments Not Currently 0 (1 standard drink = 0.6 oz pure alcoho l) Sex Assigned at Date Recorded Not on file documented as of this encounter Last Filed Vital Signs Vital Sign Reading Time Taken Comments Blood Pressure 134/78 06/15/2020 2:10 PM CDT Pulse 52 06/15/2020 2:10 PM CDT Temperature - - Respiratory Rate - - Oxygen Saturation - - Inhaled Oxygen Concentration - - Weight - - Height - - Body Mass Index - - documented in this encounter Patient Instructions Patient InstructionsDiane Flower PA-C - 06/15/2020 2:00 PM CDT Start Hydrochlorothiazide 12.5 mg, one tablet once daily. Take with Lisinopril 20 mg, one tablet once daily. Labs pending today for electrolytes and kidney function. Follow up to clinic in 2-3 weeks to recheck blood pressure. Follow up to clinic sooner if needed. Diane Flower PA-C [email or web address] [address], [address] [place] [address] Appointment Line Phone number: [phone] Fax number: [phone] documented in this encounter Progress Notes Diane Flower PA-C - 06/15/2020 2:00 PM CDT Chief Complaint: Chief Complaint Patient presents with ??? MEDICATION CHECK ??? BP CHECK,MD ??? LAB TESTS, NOS HPI: Jake Cuello is a 64 y.o. old male who presents to [facility] for a blood pressure check. He started Lisinopril 20 mg one tablet once daily and Atorvastatin 40 mg, one tablet once daily, two weeks ago and states he is tolerating medications well. He is checking his BP at home and states his numbers range in the 130's-150's for systolic blood pressure and mid to upper 80's for diastolic blood pressure. He denies chest pain, SOB, chronic cough, abdominal pain, back pain or leg edema. I have reviewed active problem list, medication list, allergies, health maintenance, lab results. Physical Exam: BP 134/78 (BP Location: Right Arm, BP Cuff Size: Regular) Pulse (!) 52 Gen: Pt A&O x 3 and appears in no distress. Heart: RRR without murmurs. Lungs: CTA bilaterally Ext: no leg edema Assessment/Plan: Blood pressure is at goal at clinic but home BP readings are mostly elevated. In the past patient was on multiple medications for Hypertension including Hydrochlorothiazide so will start Hydrochlorothiazide to take with Lisinopril today. Pt advised to continue taking Lisinopril 20 mg, one tablet once daily, as prescribed and to start Hydrochlorothiazide 12.5 mg, one tablet once daily, can be taken atthe same time as Lisinopril. Labs are pending today. Patient to return to this clinic in 2 week(s) for BP recheck and medication check or sooner if new symptoms develop. He is advised to bring his home BP cuff to next appointment to check accuracy with clinic BP cuff. He agreed with the treatment plan. Diagnosis: ICD-10-CM 1. Essential hypertension I10 Creatinine / GFR hydroCHLOROthiazide (ORETIC) 12.5 MG tablet Potassium Sodium Creatinine / GFR Potassium Sodium 2. Hypercholesterolemia E78.00 documented in this encounter Plan of Treatment Not on filedocumented as of this encounter Procedures Procedure Name Priority Date/Time Associated Diagnosis Comme nts CREATININE / GFR Routine 06/15/2020 2:18 PM Essential hyperten lissy Results for this CDT procedure are i n the results section. SODIUM Routine 06/15/2020 2:18 PM Essential hypertension Results for this CDT procedure are i n the results section. POTASSIUM Routine 06/15/2020 2:18 PM Essential hypertension Results for this CDT procedure are i n the results section. documented in this encounter Results Sodium (06/15/2020 2:18 PM CDT) P athologist Signature Sodium 139 136 - 145 06/15/2020 [facility] mmol/L 8:11 PM CDT C[facility]AL [facility] Specimen Anatomical Collection Method / Collection Time Recei adriana Time (Source) Location / Volume Laterality Blood Venipuncture / 06/15/2020 2:18 06/15/2020 2:18 Unknown PM CDT PM CDT Diane Flower PA-C LAB_1 Performing Organization Address [facility] Phon e Number [facility] [address] [address] Potassium (06/15/2020 2:18 PM CDT) P athologist Signature Potassium 4.2 3.5 - 5.1 06/15/2020 [facility] mmol/L 8:11 PM CDT CENTRAL LAB Specimen Anatomical Collection Method / Collection Time Recei adriana Time (Source) Location / Volume Laterality Blood Venipuncture / 06/15/2020 2:18 06/15/2020 2:18 Unknown PM CDT PM CDT Diane Flower PA-C LAB_1 Performing Organization Address [facility] Phon e Number [facility] [address] [address] Creatinine / GFR (06/15/2020 2:18 PM CDT) [facility] gist Method Time Signature Creatinine 1.08 0.73 - 06/15/2020 [facility] 1.18 8:11 PM CDT CENTRAL LAB mg/dL GFR, Estimated >60 >60 06/15/2020 [facility] mL/min/1. 8:11 PM CDT CENTRAL LAB 73m2 Specimen Anatomical Collection Method / Collection Time Recei adriana Time (Source) Location / Volume Laterality Blood Venipuncture / 06/15/2020 2:18 06/15/2020 2:18 Unknown PM CDT PM CDT Diane Flower PA-C LAB_1 Performing Organization Address City/State/ZIP Code Phon e Number [facility] CENTRAL [facility] [address] [phone] documented in this encounter Visit Diagnoses Diagnosis Essential hypertension (HRC) - Primary Unspecified essential hypertension Hypercholesterolemia Pure hypercholesterolemia documented in this encounter Care Teams Anthropology And Archeology Instructor Relationship Specialty Start Date End Date John Meyer MD PCP - General Family Practice 06/01/20 [address] [place] [address] documented as of this encounter
--- OUTSIDE RECORDS SUMMARY | 2022-08-28 13:49 | XMS_ITS | Encounter Summary ---
:1955 Author Organization [facility] Address [address] [place] [address] Care Team Providers Name Role Phone Unassigned, Provider Primary Care Provider Unavailable Reason for Visit Reason Comments LAB RESULTS Encounter Details Date Type Department Care Team Description 10/27/2017 Phone Visit [facility] Essential hypertension (Prim maria dolores Dx); [address] Elevated serum creatinine [place] [phone] Social History Tobacco Use Types Packs/Day Years Used Date Smoking Tobacco: Never Smokeless Tobacco: Never Alcohol Use Standard Drinks/Week Comments Yes 2 (1 standard drink = 0.6 oz pure alcoho l) Sex Assigned at Date Recorded Not on file documented as of this encounter Progress Notes Diane Flower PA-C - 10/27/2017 1:00 PM CST Subjective Jake Cuello was called for a scheduled telephone visit regarding: lab results. Patient had labs checked to check creatinine/GFR after starting Lisinopril. He had these same labs checked prior to starting Lisinopril but those lab results are from work's biometric screening and arenot in [employer]. Patient notified of lab results: Component Latest Ref Rng & Units 10/24/2017 Creatinine 0.73 - 1.18 mg/dl 1.40 (H) GFR, Estimated >60 ml/min/1.73m2 54 (L) GFR, Est., If Black >60 ml/min/1.73m2 >60 Potassium 3.5 - 5.1 mmol/L 4.2 Sodium 136 - 145 mmol/L 138 HIV 1/2 AG/AB 4thGEN NEGNR Negative (Non Reactive) Anti-HCV NEGNR Negative (Non Reactive) Allergies, medications and histories reviewed and updated. Assessment & Plan Jake was seen today for lab results. Diagnoses and all orders for this visit: Essential hypertension (HRC) Elevated serum creatinine Notified patient of elevated serum creatinine. Encouraged patient to drink plenty of fluids. Encouraged patient to return to clinic this week to recheck blood pressure and patient is to bring biometric lab results with to patient for us to discuss. Discussed that occasionally Lisinopril can cause kidney abnormalities so we need to check his creatinine/GFR prior to starting Lisinopril. If elevated creatinine appears to be caused by Lisinopril and/or blood pressure still not well-controlled, will switch bp med to another medication. Patient encouraged to return to clinic sooner if needed. Time spent on the phone with the patient: 8 minutes. Diane Flower PA-C [place] SUPPORT EQUIPMENT FITTER documented in this encounter Plan of Treatment Not on filedocumented as of this encounter Visit Diagnoses Diagnosis Essential hypertension (HRC) - Primary Unspecified essential hypertension Elevated serum creatinine Other nonspecific findings on examinatio n of blood documented in this encounter Care Teams Nurse Charge Rn Relationship Specialty Start Date End Date Unassigned, Provider PCP - General 08/13/00 05/31/[address] [place] [id number] documented as of this encounter
--- OUTSIDE RECORDS SUMMARY | 2022-08-28 13:49 | XMS_ITS | Encounter Summary ---
:1955 [address] [address] Address [address] [place] [address] Care Team Providers Name Role Phone Unassigned, Provider Primary Care Provider Unavailable Reason for Visit Reason Comments LAB RESULTS Encounter Details Date Type Department Care Team Description 11/07/2017 Phone Visit [facility] Essential hypertension [address] (Primary Dx) [place] [phone] Social History Tobacco Use Types Packs/Day Years Used Date Smoking Tobacco: Never Smokeless Tobacco: Never Alcohol Use Standard Drinks/Week Comments Yes 2 (1 standard drink = 0.6 oz pure alcoho l) Sex Assigned at Date Recorded Not on file documented as of this encounter Progress Notes Diane Flower PA-C - 11/07/2017 8:00 AM CST Subjective Jake Cuello was called for a scheduled telephone visit regarding: lab results. History of Hypertension. He presented earlier this week to have labs checked to check kidney function, as creatinine increased after starting Lisinopril. Labs reviewed and discussed with patient: Component Latest Ref Rng & Units 11/05/2017 10/24/2017 Creatinine 0.73 - 1.18 mg/dl 0.98 1.40 (H) GFR, Estimated >60 ml/min/1.73m2 >60 54 (L) GFR, Est., If Black >60 ml/min/1.73m2 >60 >60 Potassium 3.5 - 5.1 mmol/L 3.8 4.2 Sodium 136 - 145 mmol/L 138 Allergies, medications and histories reviewed and updated. Assessment & Plan Jake was seen today for lab results. Diagnoses and all orders for this visit: Essential hypertension (HRC) Reassured patient of normal creatinine/GFR and potassium. Encouraged to continue Triamterene-Hydrochlorothiazide as prescribed. Patient to follow up next week to recheck blood pressure. Encouraged follow up sooner if needed. Time spent on the phone with the patient: 5 minutes. Diane Flower PA-C [employer] documented in this encounter Plan of Treatment Not on filedocumented as of this encounter Visit Diagnoses Diagnosis Essential hypertension (HRC) - Primary Unspecified essential hypertension documented in this encounter Care Teams Strapping Machine Operator Relationship Specialty Start Date End Date Unassigned, Provider PCP - General 08/13/00 05/31/[address] [place] [id number] documented as of this encounter
--- OUTSIDE RECORDS SUMMARY | 2022-08-28 13:49 | XMS_ITS | Encounter Summary ---
:1955 Author Organization [facility] Address [address] [place] [address] Care Team Providers Name Role Phone John Meyer MD Primary Care Provider Reason for Visit Reason Comments COVID Screening Encounter Details Date Type Department Care Team Description 06/01/2020 Telephone [facility] Unassigned, Provider COVID Screening [address] [place] [address] [place] [address] Social History Tobacco Use Types Packs/Day Years Used Date Smoking Tobacco: Never Smokeless Tobacco: Never Alcohol Use Standard Drinks/Week Comments Not Currently 0 (1 standard drink = 0.6 oz pure alcoho l) Sex Assigned at Date Recorded Not on file documented as of this encounter Nursing Notes Elvin Menchaca - 06/01/2020 12:31 PM CDT For your safety and ours, we???d like to screen for COVID-19 symptoms before scheduling your visit. Do you or a household member currently have: fever (>100), cough, sore throat, new loss of taste or smell, or shortness of breath? No In the last 14 days, have you had close contact with a person known to have COVID-19 or been instructed to self-isolate? No I will help schedule your visit now. [Home Agent: Complete [facility] decision tree and continue scheduling.] Elvin Menchaca documented in this encounter Plan of Treatment Not on filedocumented as of this encounter Visit Diagnoses Not on filedocumented in this encounter Care Teams Granulating Blender Relationship Specialty Start Date End Date Jonh Meyer MD PCP - General Family Practice 06/01/20 [address] [place] [address] documented as of this encounter
--- OUTSIDE RECORDS SUMMARY | 2022-08-28 13:50 | XMS_ITS | Encounter Summary ---
:1955 Author Organization [facility] Address [address] [place] [address] Care Team Providers Name Role Phone Unassigned, Provider Primary Care Provider Unavailable Reason for Visit Reason Comments BP CHECK,MD SHOT,FLU Encounter Details Date Type Department Care Team Description 10/09/2017 Office Visit [facility] Patric Das g Essential hypertension (Prim maria dolores Dx); [address] [place] [address] Social History Tobacco Use Types Packs/Day Years Used Date Smoking Tobacco: Never Smokeless Tobacco: Never Alcohol Use Standard Drinks/Week Comments Yes 2 (1 standard drink = 0.6 oz pure alcoho l) Sex Assigned at Date Recorded Not on file documented as of this encounter Last Filed Vital Signs Vital Sign Reading Time Taken Comments Blood Pressure 151/87 10/09/2017 12:21 PM MARBLE MASON Pulse 55 10/09/2017 12:21 PM MARBLE MASON Temperature 36.5 ??C (97.7 ??F) 10/09/2017 12:09 PM MARBLE MASON Respiratory Rate 16 10/09/2017 12:09 PM MARBLE MASON Oxygen Saturation - - Inhaled Oxygen Concentration - - Weight 88 kg (194 lb) 10/09/2017 12:09 PM MARBLE MASON Height 181 cm (5' 11.25) 10/09/2017 12:09 PM MARBLE MASON Body Mass Index 26.87 10/09/2017 12:09 PM MARBLE MASON documented in this encounter Patient Instructions Patient InstructionsDiane Flower PA-C - 10/09/2017 12:00 PM MARBLE MASON Start Lisinopril 20 mg, one tablet once daily. Limit sodium/salt in diet. Eat healthy, limit processed foods. Exercise 30 minutes most days weekly. Aim for 7-9 hours sleep. Limit stress. Return to clinic in 1-2 weeks to recheck blood pressure. Please bring lab results with you to next appointment. Follow up at your convenience for Routine Health Maintenance/Physical Exam and to discuss shoulder pain/issues. Have previous medical records faxed to [facility] for review. Follow up sooner if needed. Diane Flower PA-C [facility] [address], [address] [place] [address] Appointment Line Phone number: [phone] Fax number: [phone] High Blood Pressure: Care Instructions Your Care Instructions If your blood pressure is usually above 140/90, you have high blood pressure, or hypertension. That means the top number is 140 or higher or the bottom number is 90 or higher, or both. Despite what a lot of people think, high blood pressure usually doesn't cause headaches or make you feel dizzy or lightheaded. It usually has no symptoms. But it does increase your risk for heart attack, stroke, and kidney or eye damage. The higher your blood pressure, the more your risk increases. Your doctor will give you a goal for your blood pressure. Your goal will be based on your health andyour age. An example of a goal is to keep your blood pressure below 140/90. Lifestyle changes, such as eating healthy and being active, are always important to help lower bloodpressure. You might also take medicine to reach your blood pressure goal. Follow-up care is a johnson part of your treatment and safety. Be sure to make and go to all appointments, and call your doctor if you are having problems. It's also a good idea to know your test results and keep a list of the medicines you take. How can you care for yourself at home? Medical treatment ?? If you stop taking your medicine, your blood pressure will go back up. You may take one or more types of medicine to lower your blood pressure. Be safe with medicines. Take your medicine exactly as prescribed. Call your doctor if you think you are having a problem with your medicine. ?? Talk to your doctor before you start taking aspirin every day. Aspirin can help certain people lower their risk of a heart attack or stroke. But taking aspirin isn't right for everyone, because it can cause serious bleeding. ?? See your doctor regularly. You may need to see the doctor more often at first or until your bloodpressure comes down. ?? If you are taking blood pressure medicine, talk to your doctor before you take decongestants or anti-inflammatory medicine, such as ibuprofen. Some of these medicines can raise blood pressure. ?? Learn how to check your blood pressure at home. Lifestyle changes ?? Stay at a healthy weight. This is especially important if you put on weight around the waist. Losing even 10 pounds can help you lower your blood pressure. ?? If your doctor recommends it, get more exercise. Walking is a good choice. Bit by bit, increase the amount you walk every day. Try for at least 30 minutes on most days of the week. You also may wantto swim, bike, or do other activities. ?? Avoid or limit alcohol. Talk to your doctor about whether you can drink any alcohol. ?? Try to limit how much sodium you eat to less than 2,300 milligrams (mg) a day. Your doctor may ask you to try to eat less than 1,500 mg a day. ?? Eat plenty of fruits (such as bananas and oranges), vegetables, legumes, whole grains, and low-fat dairy products. ?? Lower the amount of saturated fat in your diet. Saturated fat is found in animal products such asmilk, cheese, and meat. Limiting these foods may help you lose weight and also lower your risk for heart disease. ?? Do not smoke. Smoking increases your risk for heart attack and stroke. If you need help quitting,talk to your doctor about stop-smoking programs and medicines. These can increase your chances of quitting for good. When should you call for help? Call 911 anytime you think you may need emergency care. This may mean having symptoms that suggest that your blood pressure is causing a serious heart or blood vessel problem. Your blood pressure may be over 180/110. For example, call 911 if: ?? You have symptoms of a heart attack. These may include: ?? Chest pain or pressure, or a strange feeling in the chest. ?? Sweating. ?? Shortness of breath. ?? Nausea or vomiting. ?? Pain, pressure, or a strange feeling in the back, neck, jaw, or upper belly or in one or both shoulders or arms. ?? Lightheadedness or sudden weakness. ?? A fast or irregular heartbeat. ?? You have symptoms of a stroke. These may include: ?? Sudden numbness, tingling, weakness, or loss of movement in your face, arm, or leg, especially ononly one side of your body. ?? Sudden vision changes. ?? Sudden trouble speaking. ?? Sudden confusion or trouble understanding simple statements. ?? Sudden problems with walking or balance. ?? A sudden, severe headache that is different from past headaches. ?? You have severe back or belly pain. Do not wait until your blood pressure comes down on its own. Get help right away. Call your doctor now or seek immediate care if: ?? Your blood pressure is much higher than normal (such as 180/110 or higher), but you don't have symptoms. ?? You think high blood pressure is causing symptoms, such as: ?? Severe headache. ?? Blurry vision. Watch closely for changes in your health, and be sure to contact your doctor if: ?? Your blood pressure measures 140/90 or higher at least 2 times. That means the top number is 140 or higher or the bottom number is 90 or higher, or both. ?? You think you may be having side effects from your blood pressure medicine. ?? Your blood pressure is usually normal, but it goes above normal at least 2 times. Where can you learn more? 1. Go to [employer] or [employer]. 2. Enter X567 in the search box. Current as of: June 17, 2016 Content Version: 11.3 ?? 9840-4050 [employer]. DASH Diet: Care Instructions Your Care Instructions The DASH diet is an eating plan that can help lower your blood pressure. DASH stands for Dietary Approaches to Stop Hypertension. Hypertension is high blood pressure. The DASH diet focuses on eating foods that are high in calcium, potassium, and magnesium. These nutrients can lower blood pressure. The foods that are highest in these nutrients are fruits, vegetables,low-fat dairy products, nuts, seeds, and legumes. But taking calcium, potassium, and magnesium supplements instead of eating foods that are high in those nutrients does not have the same effect. The DASH diet also includes whole grains, fish, and poultry. The DASH diet is one of several lifestyle changes your doctor may recommend to lower your high bloodpressure. Your doctor may also want you to decrease the amount of sodium in your diet. Lowering sodium while following the DASH diet can lower blood pressure even further than just the DASH diet alone. Follow-up care is a johnson part of your treatment and safety. Be sure to make and go to all appointments, and call your doctor if you are having problems. It's also a good idea to know your test results and keep a list of the medicines you take. How can you care for yourself at home? Following the DASH diet ?? Eat 4 to 5 servings of fruit each day. A serving is 1 medium-sized piece of fruit, ?? cup choppedor canned fruit, 1/4 cup dried fruit, or 4 ounces (?? cup) of fruit juice. Choose fruit more often than fruit juice. ?? Eat 4 to 5 servings of vegetables each day. A serving is 1 cup of lettuce or raw leafy vegetables, ?? cup of chopped or cooked vegetables, or 4 ounces (?? cup) of vegetable juice. Choose vegetables more often than vegetable juice. ?? Get 2 to 3 servings of low-fat and fat-free dairy each day. A serving is 8 ounces of milk, 1 cup of yogurt, or 1 ?? ounces of cheese. ?? Eat 6 to 8 servings of grains each day. A serving is 1 slice of bread, 1 ounce of dry cereal, or ?? cup of cooked rice, pasta, or cooked cereal. Try to choose whole-grain products as much as possible. ?? Limit lean meat, poultry, and fish to 2 servings each day. A serving is 3 ounces, about the size of a deck of cards. ?? Eat 4 to 5 servings of nuts, seeds, and legumes (cooked dried beans, lentils, and split peas) each week. A serving is 1/3 cup of nuts, 2 tablespoons of seeds, or ?? cup of cooked beans or peas. ?? Limit fats and oils to 2 to 3 servings each day. A serving is 1 teaspoon of vegetable oil or 2 tablespoons of salad dressing. ?? Limit sweets and added sugars to 5 servings or less a week. A serving is 1 tablespoon jelly or jam, ?? cup sorbet, or 1 cup of lemonade. ?? Eat less than 2,300 milligrams (mg) of sodium a day. If you limit your sodium to 1,500 mg a day, you can lower your blood pressure even more. Tips for success ?? Start small. Do not try to make dramatic changes to your diet all at once. You might feel that you are missing out on your favorite foods and then be more likely to not follow the plan. Make small changes, and stick with them. Once those changes become habit, add a few more changes. ?? Try some of the following: ?? Make it a goal to eat a fruit or vegetable at every meal and at snacks. This will make it easy toget the recommended amount of fruits and vegetables each day. ?? Try yogurt topped with fruit and nuts for a snack or healthy dessert. ?? Add lettuce, tomato, cucumber, and onion to sandwiches. ?? Combine a ready-made pizza crust with low-fat mozzarella cheese and lots of vegetable toppings. Try using tomatoes, squash, spinach, broccoli, carrots, cauliflower, and onions. ?? Have a variety of cut-up vegetables with a low-fat dip as an appetizer instead of chips and dip. ?? Sprinkle sunflower seeds or chopped almonds over salads. Or try adding chopped walnuts or almondsto cooked vegetables. ?? Try some vegetarian meals using beans and peas. Add garbanzo or kidney beans to salads. Make burritos and tacos with mashed kwan beans or black beans. Where can you learn more? 1. Go to [employer] or [employer]. 2. Enter H967 in the search box. Current as of: February 10, 2017 Content Version: 11.3 ?? 0534-3131 [employer]. LE MASON documented in this encounter Progress Notes Diane Flower PA-C - 10/09/2017 12:00 PM CST SUBJECTIVE: Jake Cuello presents to [facility] to check blood pressure and for flu shot. Patient has history of high blood pressure and recently had blood pressure checked at [facility] screening for work. Blood pressure checked at work screening on 08/07/2017 and was 144/88, so patient was recommended to recheck blood pressure at clinic in two months. He states his blood pressure was elevated years ago but he hasn't been to the doctor for about 3-4 years. He states his cholesterol was elevated previously too. He did have recent blood work done but did not bring lab resultstoday. His father from a massive heart attack at age 64 so patient is concerned about high blood pressure and high cholesterol and would like to get these medical concerns examined. He denies headaches, vision changes, lightheadedness/dizziness, chest pain, back pain, palpitations, dyspnea, nausea/vomiting, weakness, numbness/tingling in upper or lower extremities or any other concerns today. Jake Cuello presents to clinic for flu shot. See smart form for questions related to flu shot. Patient is currently feeling well without any cold or URI symptoms. No fevers/chills. Denies any other medical complaints or problems. Allergies, medications and history reviewed today. OBJECTIVE: Filed Vitals: 10/09/17 1209 10/09/17 1214 10/09/17 1221 BP: (!) 165/101 (!) 151/91 (!) 151/87 Pulse: (!) 57 (!) 56 (!) 55 Resp: 16 Temp: 97.7 ??F (36.5 ??C) TempSrc: Oral Weight: 194 lb (88 kg) Height: 5' 11.25 (1.81 m) He appears well, in no apparent distress. Alert and oriented times three, pleasant and cooperative. Vital signs are as noted. Skin without rashes, with normal skin turgor. No peripheral edema. Heart rate is bradycardic with regular rhythm. ASSESSMENT: Jake was seen today for bp check,md and shot,flu. Diagnoses and all orders for this visit: Essential hypertension (HRC) - lisinopril (ZESTRIL) 20 MG tablet; Take 1 Tab by mouth daily. Needs flu shot Other orders - Influenza (Fluarix 0.5, 3+ yrs or FluLaval 0.5) PLAN: Start Lisinopril 20 mg, one tablet once daily. #30 tabs dispensed. Encouraged supportive care measures for high blood pressure: Limit sodium/salt in diet. Eat healthy, limit processed foods. Exercise 30 minutes most days weekly. Aim for 7-9 hours sleep. Limit stress. Return to clinic in 1-2 weeks to recheck blood pressure. Patient advised to bring lab results with at next appointment. Follow up at your convenience for Routine Health Maintenance/Physical Exam and to discuss shoulder pain/issues. Have previous medical records faxed to [facility] for review. Follow up sooner if needed. Flu shot administered without any complications or problems. Benefits, Side effects and possible complications/risks discussed prior to immunization. Encouraged return if any problems occur, otherwise follow up as needed. Patient information given regarding flu immunization. LE MASON documented in this encounter Plan of Treatment Not on filedocumented as of this encounter Visit Diagnoses Diagnosis Essential hypertension (HRC) - Primary Unspecified essential hypertension Needs flu shot Need for prophylactic vaccination and in oculation against influenza documented in this encounter Care Teams Business Specialist Relationship Specialty Start Date End Date Unassigned, Provider PCP - General 08/13/00 05/31/[address] [place] [id number] documented as of this encounter
--- OUTSIDE RECORDS SUMMARY | 2022-08-28 13:50 | XMS_ITS | Encounter Summary ---
:1955 Author Organization [facility] Address [address], [place] [address] Care Team Providers Name Role Phone Unassigned, Provider Primary Care Provider Unavailable Encounter Details Date Type Department Care Team Description 07/11/2006 Office Visit [facility] [address] [facility] [address] [facility] [address] [place] [address] [place], [place] [id number] [phone] Social History Tobacco Use Types Packs/Day Years Used Date Smoking Tobacco: Never Assessed Sex Assigned at Date Recorded Not on file documented as of this encounter Progress Notes Corina Monk APRN, CNP - 07/11/2006 12:01 AM CDT Progress Notes signed by Corina Yusuf APRN, CNP at 07/11/06 1004 Author: Corina Yusuf APRN, CNP Service: (none) Author Type: Nurse Practitioner Filed: 07/11/06 0000 Note Time: 07/11/06 0001 Status: Signed Title Attorney: Corina Yusuf APRN, CNP (Nurse Practitioner) Travel Clinic Return Visit Patient returns to the travel clinic Individually for a follow-up visit. Patient was last seen on 11/08/2005. for trip to [facility] Patient returns for: immunization, Hep A #2 IMMUNIZATIONS Patient was given the following immunizations per clinic protocol: hepatitis A #2, Reaction to Vaccine: Patient had no reaction. The following information/education was reviewed with the patient: tuberculosis, Patient advised to review with primary MD management of current health concerns while traveling. Patient appears to understand all the information given. pt. has a hx of positive mantoux and INH tx x 1y. Many questions related to active TB symptoms and hx of abnormal CXR. Advised to get PE at PMD and discuss TB concerns. Explained the difference between active disease and positive ppd reaction. Pt. also c/o runny nose, cough symptoms. He has a PE scheduled next week. See [facility] sooner if symptoms get worse. PRESCRIPTIONS No prescriptions given. PLAN Laboratory Studies: No labs ordered. Return To Clinic: No follow-up visit needed. 5 minutes spent counseling/educating patient. *SH~TRAVEL~RETURN ~[place] Note completed on: 07/11/2006 10:05 AM documented in this encounter Plan of Treatment Not on filedocumented as of this encounter Visit Diagnoses Not on filedocumented in this encounter Care Teams Rehabilitation Psychologist Relationship Specialty Start Date End Date Unassigned, Provider PCP - General 08/13/00 05/31/[address] [place] [id number] documented as of this encounter
--- OUTSIDE RECORDS SUMMARY | 2022-08-28 13:50 | XMS_ITS | Encounter Summary ---
:1955 Author Organization [facility] Address [address] [place] [address] Care Team Providers Name Role Phone Unassigned, Provider Primary Care Provider Unavailable Encounter Details Date Type Department Care Team Description 10/28/2005 PN Conversion Only [facility] Social History Tobacco Use Types Packs/Day Years Used Date Smoking Tobacco: Never Assessed Sex Assigned at Date Recorded Not on file documented as of this encounter Plan of Treatment Not on filedocumented as of this encounter Visit Diagnoses Not on filedocumented in this encounter Care Teams J2Ee Programmer Relationship Specialty Start Date End Date Unassigned, Provider PCP - General 08/13/00 05/31/20 [address] [place] [address] documented as of this encounter
--- OUTSIDE RECORDS SUMMARY | 2022-08-28 13:50 | XMS_ITS | Encounter Summary ---
:1955 Author Organization [facility] Address [address], [place] [address] Care Team Providers Name Role Phone Unassigned, Provider Primary Care Provider Unavailable Encounter Details Date Type Department Care Team Description 03/13/[address] [facility] [address] Tatiana Guzman, Travel Clinic EVENT COORDINATOR, RN TRAVELING [address] [place] [address] [phone] (Wo rk) Social History Tobacco Use Types Packs/Day Years Used Date Smoking Tobacco: Never Assessed Sex Assigned at Date Recorded Not on file documented as of this encounter Plan of Treatment Not on filedocumented as of this encounter Visit Diagnoses Not on filedocumented in this encounter Care Teams Shuttle Final Inspector Relationship Specialty Start Date End Date Unassigned, Provider PCP - General 08/13/00 05/31/20 [address] [place] [address] documented as of this encounter
--- OUTSIDE RECORDS SUMMARY | 2022-08-28 13:50 | XMS_ITS | Encounter Summary ---
:1955 Author Organization [facility] Address [address] [place] [address] Care Team Providers Name Role Phone Unassigned, Provider Primary Care Provider Unavailable Encounter Details Date Type Department Care Team Description 02/12/2002 Education Unknown, [facility] [address] [place], [place] [id number] (Wo rk) Social History Tobacco Use Types Packs/Day Years Used Date Smoking Tobacco: Never Assessed Sex Assigned at Date Recorded Not on file documented as of this encounter Progress Notes Unknown, Physician - 02/12/2002 12:00 AM CSTPROVIDER - Deb Hogan, MS [facility]; ; DEPT: [facility] - [facility] Phone Line S: Had completed a DM risk survey through worksite; hgt = 72 inches; wt = 175 lb; reports diab risk factors include: age, hx: high chol and fam hx: HTN; Thinking about making lifestyle behavior changes within next 6 month; Not sure what kind of support wanted for making lifestyle changes; Interested in reading materials; mbfred had marked on his survey that he had HTN but now reports that it's not due to checking it at home which was recommended from his doctor O: Completed dm prev screen and risk tool, explained phone line services and program options, reviewed risk factors for developing type 2 dm and agreed to send reference materials for them to review on dm risk mgt; A: BMI = 23.73; at mod risk for developing dm; Would benefit from fasting plasma glucose test to screen for dm; caller appears appropriate to participate in phone-based programs; Caller at maintenance stage of change for making lifestyle behavior change(s) P: Sending LEDANIELA brochure jed [facility]; ; documented in this encounter Plan of Treatment Not on filedocumented as of this encounter Visit Diagnoses Not on filedocumented in this encounter Care Teams Dry Kiln Operator Relationship Specialty Start Date End Date Unassigned, Provider PCP - General 08/13/00 05/31/[address] [place] [id number] documented as of this encounter
--- OUTSIDE RECORDS SUMMARY | 2022-08-28 13:50 | XMS_ITS | Encounter Summary ---
:1955 Author Organization [facility] Address [address], [place] [address] Care Team Providers Name Role Phone Unassigned, Provider Primary Care Provider Unavailable Encounter Details Date Type Department Care Team Description 01/29/2005 Correspondence None Hp Chano, Provider CONSENT AND RELEASE Social History Tobacco Use Types Packs/Day Years Used Date Smoking Tobacco: Never Assessed Sex Assigned at Date Recorded Not on file documented as of this encounter Progress Notes Bruce Madden, Provider - 01/29/2005 12:00 AM INSPECTOR PUBLICATIONS documented in this encounter Plan of Treatment Not on filedocumented as of this encounter Visit Diagnoses Not on filedocumented in this encounter Care Teams Warehouse Packaging Supervisor Relationship Specialty Start Date End Date Unassigned, Provider PCP - General 08/13/00 05/31/[address] [place] [id number] documented as of this encounter
--- OUTSIDE RECORDS SUMMARY | 2022-08-28 13:50 | XMS_ITS | Encounter Summary ---
:1955 Author Organization [facility] Address [address], [place] [address] Care Team Providers Name Role Phone Unassigned, Provider Primary Care Provider Unavailable Encounter Details Date Type Department Care Team Description 11/08/2005 Office Visit [facility] [address] Tatiana Guzman, Clinic ANDREA MUELLER [address] [place] [place] [place] [address] [place] [address] [phone] (Wo rk) Social History Tobacco Use Types Packs/Day Years Used Date Smoking Tobacco: Never Assessed Sex Assigned at Date Recorded Not on file documented as of this encounter Progress Notes Tatiana Guzman APRN, CNP - 11/08/2005 12:01 AM CST Progress Notes signed by Tatiana Guzman APRN, CNP at 11/08/05 1320 Author: YANELY Strange Service: (none) Author Type: Nurse Practitioner Filed: 03/01/11 0932 Note Time: 11/08/05 0001 Status: Signed Inpatient Nursing Aide: YANELY Strange (Nurse Practitioner) Travel Clinic Initial Visit Patient is seen in Travel Clinic individually for travel education and counseling. TRAVEL PLANS Patient states they are planning to travel to: [place] Plans include travel to and/or lodging at: rural areas, urban areas High Risk Areas: Patient is traveling to yellow fever risk area. Patient is traveling to malaria risk area for 3 weeks. Reviewed a malaria risk map with the patient and they were given a copy. Departure Date: 02/05/2006 Estimated Length of Stay: 3 weeks. 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 HEALTH HISTORY : Not applicable. Medications: None. Previous Health History: Patient reports a history of no relevant previous health history, PATIENT EDUCATION Patient was given verbal and/or written information about: dengue fever, diphtheria/tetanus, hepatitis A, hepatitis B, HIV, influenza, malaria, meningitis, polio, rabies--pre-exposure schedule, rabies--post-exposure protocol, schistosomiasis, seafood poisoning, sexually transmitted diseases, travax/CDC information, traveler's diarrhea, typhoid, yellow fever, Reviewed vaccine schedule and efficacy. Patient was also provided information about health care and insurance information while traveling abroad. Patient appears to understand all the information given. IMMUNIZATIONS Patient states routine vaccines are current for age. Patient was given the following immunizations per clinic protocol: eIPV, hepatitis A #1, menomune, Ty2la, yellow fever vaccine, Patient became lightheaded after vaccine & was assisted to lie down, was given orange juice, symptoms resolved, left department without further symptoms. says this has happened to him before PRESCRIPTIONS Reviewed medication options for itinerary. Risks, benefits and side effects were discussed. The following prescriptions/OTC medications were given: malarone. cipro. imodium. (Patient was instructed to follow package directions for imodium dose.) pepto bismol. (Patient was instructed to follow package directions for pepto bismol dose.) Patient educational information regarding these prescribed medications was provided. PLAN Laboratory Studies: No labs ordered. Return To Clinic: For hepatitis A #2 vaccine in 6 months. 15 minutes spent counseling/educating patient. *SH~TRAVEL~INT ~Shorthand Note completed on: 11/08/2005 1:19 PM ATION DIRECTOR documented in this encounter Plan of Treatment Not on filedocumented as of this encounter Visit Diagnoses Not on filedocumented in this encounter Care Teams Neurodiagnostic Technician Relationship Specialty Start Date End Date Unassigned, Provider PCP - General 08/13/00 05/31/[address] [place] [address] documented as of this encounter
--- OUTSIDE RECORDS SUMMARY | 2022-08-28 13:50 | XMS_ITS | Encounter Summary ---
:1955 Author [facility] Address [address] [address] Care Team Providers Name Role Phone Unassigned, Provider Primary Care Provider Unavailable Encounter Details Date Type Department Care Team Description 07/10/2006 PN Conversion Only GLASS LATHE OPERATOR [address] [place] [address] Social History Tobacco Use Types Packs/Day Years Used Date Smoking Tobacco: Never Assessed Sex Assigned at Date Recorded Not on file documented as of this encounter Plan of Treatment Not on filedocumented as of this encounter Visit Diagnoses Not on filedocumented in this encounter Care Teams Dairy Nutritionist Relationship Specialty Start Date End Date Unassigned, Provider PCP - General 08/13/00 05/31/[address] [place] [address] documented as of this encounter
--- OUTSIDE RECORDS SUMMARY | 2022-08-28 13:50 | XMS_ITS ---
:1955 Author Care Team Providers Name Role Phone Kate Groves Primary Care Provider Unavailable Allergies None recorded. Medications Name Status Start Date Stop Date ? ? acetaminophen 300 mg-codeine 30 mg tablet Active ? Not available amoxicillin 500 mg capsule Active ? Not a vailable atorvastatin 40 mg tablet Active ? Not av ailable Fluzone Quad [id number] (PF) 60 mcg (15 mcg x 4)/0.5 mL IM Active ? Not available syringe hydrochlorothiazide 12.5 mg tablet Active ? Not available lisinopril 20 mg tablet Active ? Not avai lable lisinopril 20 mg-hydrochlorothiazide 12.5 mg tablet Active ? Not available Problems None recorded. Procedures None recorded. Results Lab Results None recorded. Past Encounters None recorded. Social History None recorded. Vaccine List None recorded. Plan of Care Reminders Provider Appointments None recorded. ? ? Lab None recorded. ? ? Referral None recorded. ? ? Procedures None recorded. ? ? Surgeries None recorded. ? ? Imaging None recorded. ? ? Vitals None recorded.
[2022-08-28 17:40] LABS: Blood Urea Nitrogen* 24 mg/dL (7-30); Carbon Dioxide* 26 mmol/L (20-32); Chloride* 101 mmol/L (96-114); Potassium* 4.2 mmol/L (3.6-5.1); Sodium* 136 mmol/L (135-149)
[2022-08-28 17:41] LABS: Alanine Aminotransferase* 31 U/L (4-50); Alkaline Phosphatase* 82 U/L (40-150); Aspartate Amino Transferase* 35 U/L (12-35); Calcium* 9.9 mg/dL (8.4-10.6); Creatinine* 0.9 mg/dL (0.5-1.5); Estimated Glomerular Filt Rate 95 ml/min; Glucose* 93 mg/dL (60-115); Total Protein* 7.7 g/dL (6.0-8.3); Triglycerides* 122 mg/dL (40-149)
[2022-08-28 17:42] LABS: Cholesterol* 244 mg/dL (90-199); HDL Cholesterol* 50 mg/dL (>=40); LDL Cholesterol Calculated 170 mg/dL (<100)
== END 2022-08-28 09:31 | disposition home or self-care (01) ==
PROVIDERS: PCP Family Medicine; Visit Provider Family Medicine
DX: Z00.00 Encounter for general adult medical examination without abnormal findings (principal); I10 Essential (primary) hypertension; E78.5 Hyperlipidemia, unspecified; Z12.5 Encounter for screening for malignant neoplasm of prostate
CPT/HCPCS: 80053; 80061; 84153

== ENCOUNTER 2022-09-30 10:12 | Outpatient (CLI) | payer MEDICARE, SELFPAY ==
--- OUTSIDE RECORDS SUMMARY | 2022-09-30 10:32 | XMS_ITS | Encounter Summary ---
:1955 Author Organization [employer] Address [address], [place] [address] Care Team Providers Name Role Phone John Meyer MD Primary Care Provider Reason for Visit Reason Comments QUESTIONS, REFERRAL Encounter Details Date Type Department Care Team Description 07/19/[address] [facility] Unassigned, Provider QUESTIONS, REFERRAL [address] [address] [address] [place] [address] Social History Tobacco Use Types Packs/Day Years [...] symptoms worsen please contact the Careline at [phone] OR at .] Is this a question/concern [...] on filedocumented in this encounter Care Teams Mechanical Product Engineer Relationship Specialty Start Date End Date John Meyer MD PCP - General Family Practice 06/01/20 [place] [id number] documented as of this encounter
--- OUTSIDE RECORDS SUMMARY | 2022-09-30 10:32 | XMS_ITS | Encounter Summary ---
:1955 Author Organization [facility] Address [address] [address] Care Team Providers Name Role Phone John Meyer MD Primary Care Provider Reason for Visit Reason Comments Refill BP CHECK, SHOT,FLU Encounter Details Date Type Department Care Team Description 07/26/2020 Office Visit [facility] Patric Das Essential hypertension (Prim maria dolores Dx); [address] [place] [address] Social History Tobacco Use Types Packs/Day [...] Diane Flower PA-C [email or web address] [address], [address] [place] [address] Appointment Line Phone number: [phone] Fax number: [phone] documented in this encounter Progress Notes Diane Flower PA-C - 07/26/2020 1:20 PM CDT Chief Complaint: Chief Complaint Patient presents with ??? Refill ??? BP CHECK,MD ??? SHOT,FLU HPI: Jake Cuello is a 64 y.o. old male who presents to the [facility] for a blood pressure [...] concerns today. He also presents to the [facility] for a flu shot. [...] flu shot Z23 Influenza IIV4 (Quadrivalent) 0.5mL (30031) Assessment/Plan: Blood pressure is at goal. Pt advised to continue taking the medications as prescribed and to returnto this clinic as needed for medication refills or sooner if new symptoms develop. He agreed with the treatment plan. He does want Lisinopril 20 mg - Hydrochlorothiazide 12.5 mg combined as one tablet once daily so newRx was e-prescribed to [facility] pharmacy. Fasting lipid panel is due. [...] flu shot Z23 Influenza IIV4 (Quadrivalent) 0.5mL (06899) documented in this encounter Plan of Treatment Not on filedocumented as of this encounter Visit Diagnoses Diagnosis Essential hypertension (HRC) - Primary Unspecified essential hypertension Needs flu shot Need for prophylactic vaccination and in oculation against influenza documented in this encounter Care Teams Sales Promoter Relationship Specialty Start Date End Date John Meyer MD PCP - General Family Practice 06/01/20 [address] [place] [phone] documented as of this encounter
--- OUTSIDE RECORDS SUMMARY | 2022-09-30 10:32 | XMS_ITS | Encounter Summary ---
:1955 Author Organization [facility] Address [address], [place] [address] Care Team Providers Name Role Phone John Meyer MD Primary Care Provider Reason for Visit Reason Comments Biometrics Screening Encounter Details Date Type Department Care Team Description 10/30/2020 Office Visit [facility] Patric Das Encounter for biometric scre ening (Primary Dx); [address] [facility] Hypercholesterolemia; [place] [address] Essential hypertension [phone] Social History Tobacco Use Types Packs/Day Years Used Date Smoking Tobacco: Never Smokeless Tobacco: Never Alcohol Use Standard Drinks/Week Comments Not Currently 0 (1 standard drink = 0.6 oz pure alcoho l) Sex Assigned at Date Recorded Not on file documented as of this encounter Last Filed Vital Signs Vital Sign Reading Time Taken Comments Blood Pressure 132/71 10/30/2020 9:32 AM REGISTERED NURSING PROFESSOR Pulse 43 10/30/2020 9:32 AM REGISTERED NURSING PROFESSOR Temperature - - Respiratory Rate - - Oxygen Saturation - - Inhaled Oxygen Concentration - - Weight 82.1 kg (181 lb) 10/30/2020 9:24 AM REGISTERED NURSING PROFESSOR Height 181 cm (5' 11.25) 10/30/2020 9:24 AM REGISTERED NURSING PROFESSOR Body Mass Index 25.07 10/30/2020 9:24 AM REGISTERED NURSING PROFESSOR documented in this encounter Progress Notes Diane [...] medication list, allergies, health maintenance, [facility], lab results. Physical Exam: BP 132/71 (BP [...] LDL(If Needed) 3. Essential hypertension (HRC) I10 STERED NURSING PROFESSOR documented in this encounter Plan of Treatment Not on filedocumented as of this encounter Procedures Procedure Name Priority Date/Time Associated Diagnosis Comme nts LIPID PANEL AND Routine 10/30/2020 9:28 AM Encounter for Resul ts for this DIRECT LDL(IF REGISTERED NURSING PROFESSOR biometric screen ing procedure are in NEEDED) Hypercholesterolemia the res ults section. GLUCOSE Routine 10/30/2020 9:28 AM Encounter for Results for this REGISTERED NURSING PROFESSOR biometric screening procedur e are in the results section. documented in this encounter Results (ABNORMAL) Glucose (10/30/2020 9:28 AM REGISTERED NURSING PROFESSOR) P athologist Signature Glucose 106 (H) 70 - 100 10/30/2020 [facility] mg/dL 8:27 PM REGISTERED NURSING PROFESSOR [facility]AL [facility] Comment: The given reference range is fo r the fasting state. Non-fasting reference range for glucose is 70 - 180 mg/dL. Hours Fasting 12 10/30/2020 8:27 PM REGISTERED NURSING PROFESSOR [facility] AT WORK RED WING Specimen Anatomical Collection Method / Collection Time Recei adriana Time (Source) Location / Volume Laterality Blood Venipuncture / 10/30/2020 9:28 10/30/2020 9:28 Unknown AM REGISTERED NURSING PROFESSOR AM REGISTERED NURSING PROFESSOR Diane Flower PA-C LAB_1 Performing Organization Address City/[facility]/ZIP Code Phon e Number [facility]AL [facility] [address] [address] [facility] WORK [address] [address] [phone] Lipid Panel and Direct LDL(If Needed) (10/30/2020 9:28 AM REGISTERED NURSING PROFESSOR) Patholo gist Method Time Signature Cholesterol 143 0 - 199 10/30/2020 [facility] mg/dL 8:27 PM REGISTERED NURSING PROFESSOR [facility]AL [facility] Triglyceride 65 <=149 10/30/2020 [facility] mg/dL 8:27 PM REGISTERED NURSING PROFESSOR [facility]AL [facility] HDL Cholesterol 50 >=40 10/30/2020 [facility] mg/dL 8:27 PM REGISTERED NURSING PROFESSOR [facility]AL [facility] LDL, Calculated 80 <130 10/30/2020 [facility] mg/dL 8:27 PM REGISTERED NURSING PROFESSOR [facility] Non HDL Chol, 93 mg/dL 10/30/2020 [facility] Calculated 8:27 PM REGISTERED NURSING PROFESSOR [facility] Cholesterol/HDL 2.9 10/30/2020 [facility] Ratio 8:27 PM REGISTERED NURSING PROFESSOR [facility] Hours Fasting 12 10/30/2020 [facility] RE D 8:27 PM REGISTERED NURSING PROFESSOR WING Specimen Anatomical Collection Method / Collection Time Recei adriana Time (Source) Location / Volume Laterality Blood Venipuncture / 10/30/2020 9:28 10/30/2020 9:28 Unknown AM REGISTERED NURSING PROFESSOR AM REGISTERED NURSING PROFESSOR Diane Flower PA-C LAB_1 Performing Organization Address City/[facility]/ZIP Code Phon e Number [facility] [address] [address] WE[facility] WORK [address] [address], [facility] [phone] documented in this encounter Visit Diagnoses Diagnosis Encounter for biometric screening - Prim maria dolores Hypercholesterolemia Pure hypercholesterolemia Essential hypertension (HRC) Unspecified essential hypertension documented in this encounter Care Teams Tar Distillation Supervisor Relationship Specialty Start Date End Date John Meyer MD PCP - General Family Practice 06/01/20 [address] [place] [phone] documented as of this encounter
--- OUTSIDE RECORDS SUMMARY | 2022-09-30 10:32 | XMS_ITS | Encounter Summary ---
:1955 Author Organization [employer] Address [address] [address] Care Team Providers Name Role Phone John Meyer MD Primary Care Provider Reason for Visit Reason Comments MEDICATION CHECK BP CHECK, LAB TESTS, NOS Encounter Details Date Type Department Care Team Description 06/15/2020 Office Visit [facility] Essential hypertension (Prim maria dolores Dx); [address] [place] [address] Social History Tobacco Use Types [...] Flower PA-C [email or web address] [address] [place] [address] Appointment Line Phone number: [phone] Fax number: [phone] documented in this encounter Progress Notes Diane Flower PA-C - 06/15/2020 2:00 PM CDT Chief Complaint: Chief Complaint Patient presents with ??? MEDICATION CHECK ??? BP CHECK,MD ??? LAB TESTS, NOS HPI: Jake Cuello is a 64 y.o. old male who presents to the [facility] for a blood [...] encounter Results Sodium (06/15/2020 2:18 PM CDT) athologist Signature Sodium 139 136 - 145 06/15/2020 [facility] mmol/L 8:11 PM CDT CENTRAL LAB Specimen Anatomical Collection Method / Collection Time Recei adriana Time (Source) Location / Volume Laterality Blood Venipuncture / 06/15/2020 2:18 06/15/2020 2:18 Unknown PM CDT PM CDT Diane Flower PA-C LAB_1 Performing Organization Address [facility] Phon e Number [facility] [address] [address] Potassium (06/15/2020 2:18 PM CDT) athologist Signature Potassium 4.2 3.5 - 5.1 06/15/2020 [facility] mmol/L 8:11 PM CDT CENTRAL LAB Specimen Anatomical Collection Method / Collection Time Recei adriana Time (Source) Location / Volume Laterality Blood Venipuncture / 06/15/2020 2:18 06/15/2020 2:18 Unknown PM CDT PM CDT Diane Flower PA-C LAB_1 Performing Organization Address [facility] Phon e Number [employer] CEN[facility]AL [facility] [address] [address] Creatinine / GFR (06/15/2020 2:18 PM CDT) [facility] gist Method Time Signature Creatinine 1.08 0.73 - 06/15/2020 [facility] 1.18 8:11 PM CDT CENTRAL LAB mg/dL GFR, Estimated >60 >60 06/15/2020 [facility] mL/min/1. 8:11 PM CDT CENTRAL LAB 73m2 Specimen Anatomical Collection Method / Collection Time Recei adriana Time (Source) Location / Volume Laterality Blood Venipuncture / 06/15/2020 2:18 06/15/2020 2:18 Unknown PM CDT PM CDT Diane Flower PA-C LAB_1 Performing Organization Address City/State/ZIP Code Phon e Number [facility]AL [facility] [address] [address] documented in this encounter Visit Diagnoses Diagnosis Essential hypertension (HRC) - Primary Unspecified essential hypertension Hypercholesterolemia Pure hypercholesterolemia documented in this encounter Care Teams Cda Teacher Relationship Specialty Start Date End Date John Meyer MD PCP - General Family Practice 06/01/20 [address] [place] [address] documented as of this encounter
--- OUTSIDE RECORDS SUMMARY | 2022-09-30 10:32 | XMS_ITS | Encounter Summary ---
:1955 Author Organization [employer] Address [address] [place] [address] Care Team Providers Name Role Phone John Meyer MD Primary Care Provider Reason for Visit Reason Comments Disease Registry Encounter Details Date Type Department Care Team Description 04/13/2021 Telephone [facility] Diane Almendarez, Disease Registry [address] [place] [address] [place] [address] [place], [place] [address] (Wo rk) Social History Tobacco [...] on filedocumented in this encounter Care Teams Cargo Trimmer Relationship Specialty Start Date End Date John Meyer MD PCP - General Family Practice 06/01/20 [address] [place] [address] documented as of this encounter
--- OUTSIDE RECORDS SUMMARY | 2022-09-30 10:32 | XMS_ITS | Clinical Summary ---
:1955 Author Organization [facility] Address [address] [place] [address] Care Team Providers Name Role Phone John [...] for each transition of care or referral. [facility] Allergies No known active allergies Medications Medication [...] Antibody 11/09/1995 Positive IPV (Polio) 11/08/2005 Influenza [id number] 12/12/2009 Influenza IIV4 (Quadrivalent) 0.5mL 07/26/2020, 08/18/2019, 07/25/2018, (00745) 10/09/2017 Influenza, Unspecified Formulation 07/25/2018 MPSV4 (Menomune) [...] Comments Blood Pressure 132/71 10/30/2020 9:32 AM YOKER Pulse 43 10/30/2020 9:32 AM YOKER Temperature 36.5 ??C (97.7 ??F) 11/05/2017 4:18 PM YOKER Respiratory Rate 16 11/05/2017 4:18 PM YOKER Oxygen Saturation - - Inhaled Oxygen Concentration - - Weight 82.1 kg (181 lb) 10/30/2020 9:24 AM YOKER Height 181 cm (5' 11.25) 10/30/2020 9:24 AM YOKER Body Mass Index 25.07 10/30/2020 9:24 AM YOKER Plan of Treatment Health Maintenance Due Date [...] patient 's age to complete this topic [phone]) [address] [phone] [address] (Work) [address] Jake Cuello Personal/Family Self 1955 [phone] [address]) [address] [phone] [address] (Work) [address] Jake Cuello Behavioral Health Self 1955 [address] (Home) [address] [phone] [address] (Work) [address] Care Teams Television Cable Installer Relationship Specialty Start Date End Date John Meyer MD PCP - General Family Practice 06/01/20 [address] [address]
--- OUTSIDE RECORDS SUMMARY | 2022-09-30 10:33 | XMS_ITS | Encounter Summary ---
:1955 Author Organization [employer] Address [address] [place] [address] Care Team Providers Name Role Phone Unassigned, Provider Primary Care Provider Unavailable Reason for Visit Reason Comments LAB RESULTS Encounter Details Date Type Department Care Team Description 11/07/2017 Phone Visit [facility] Patric lala Essential hypertension [address] (Primary Dx) [place] [address] Social History Tobacco Use Types Packs/Day [...] the patient: 5 minutes. Diane Flower PA-C SURE TANK OPERATOR documented in this encounter Plan of Treatment Not on filedocumented as of this encounter Visit Diagnoses Diagnosis Essential hypertension (HRC) - Primary Unspecified essential hypertension documented in this encounter Care Teams Oil Well Perforator Operator Relationship Specialty Start Date End Date Unassigned, Provider PCP - General 08/13/00 05/31/[address] [place] [address] documented as of this encounter
--- OUTSIDE RECORDS SUMMARY | 2022-09-30 10:33 | XMS_ITS | Encounter Summary ---
:1955 Author Organization [email or web address] Address [address] [place] [address] Care Team Providers Name Role Phone Unassigned, Provider Primary Care Provider Unavailable Reason for Visit Reason Comments LAB RESULTS Encounter Details Date Type Department Care Team Description 10/27/2017 Phone Visit [facility] Patric lala Essential hypertension (Prim maria dolores Dx); [address] [place] [address] Social History Tobacco Use Types Packs/Day [...] from work's biometric screening and arenot in [employer]. Patient notified of lab results: Component Latest [...] the patient: 8 minutes. Diane Flower PA-C [employer] BARN GROOM documented in this encounter Plan of Treatment Not on filedocumented as of this encounter Visit Diagnoses Diagnosis Essential hypertension (HRC) - Primary Unspecified essential hypertension Elevated serum creatinine Other nonspecific findings on examinatio n of blood documented in this encounter Care Teams Reeling Machine Setup Operator Relationship Specialty Start Date End Date Unassigned, Provider PCP - General 08/13/00 05/31/[address] [place] [address] documented as of this encounter
--- OUTSIDE RECORDS SUMMARY | 2022-09-30 10:33 | XMS_ITS | Encounter Summary ---
:1955 Author Organization [employer] Address [address] [address] Care Team Providers Name Role Phone Unassigned, Provider Primary Care Provider Unavailable Reason for Visit Reason Comments HYPERTENSION Encounter Details Date Type Department Care Team Description 11/05/2017 Office Visit [facility] Patric lala Essential hypertension [address] (Primary Dx) [place] [address] Social History Tobacco Use Types Packs/Day Years Used Date Smoking Tobacco: Never Smokeless Tobacco: Never Alcohol Use Standard Drinks/Week Comments Yes 2 (1 standard drink = 0.6 oz pure alcoho l) Sex Assigned at Date Recorded Not on file documented as of this encounter Last Filed Vital Signs Vital Sign Reading Time Taken Comments Blood Pressure 145/99 11/05/2017 4:18 PM CLIENT SUPPORT ASSOCIATE Pulse 74 11/05/2017 4:18 PM CLIENT SUPPORT ASSOCIATE Temperature 36.5 ??C (97.7 ??F) 11/05/2017 4:18 PM CLIENT SUPPORT ASSOCIATE Respiratory Rate 16 11/05/2017 4:18 PM CLIENT SUPPORT ASSOCIATE Oxygen Saturation - - Inhaled Oxygen Concentration [...] Yaneth will contact you with lab results. NT SUPPORT ASSOCIATE documented in this encounter Progress Notes Sebastian Garcia - 11/06/2017 8:17 PM CLIENT SUPPORT ASSOCIATE Addended by: SEBASTIAN GARCIA on: 11/06/2017 08:17 PM Modules accepted: Orders NT SUPPORT ASSOCIATE Patty Lucero PA-C - 11/05/2017 4:20 PM [...] high blood pressure. Try following DASH diet. NT SUPPORT ASSOCIATE documented in this encounter Plan of Treatment Not on filedocumented as of this encounter Procedures Procedure Name Priority Date/Time Associated Diagnosis Comme nts CREATININE / GFR Routine 11/05/2017 4:20 PM Essential hyperten lissy Results for this CLIENT SUPPORT ASSOCIATE procedure are i n the results section. POTASSIUM Routine 11/05/2017 4:20 PM Essential hypertension Results for this CLIENT SUPPORT ASSOCIATE procedure are i n the results section. documented in this encounter Results Potassium (11/05/2017 4:20 PM CLIENT SUPPORT ASSOCIATE) P athologist Signature Potassium 3.8 3.5 - 5.1 [facility] mmol/L Specimen Anatomical Collection Method Collection Time Receive d Time (Source) Location / / Volume Laterality 11/05/2017 4:20 PM 7 8:26 CLIENT SUPPORT ASSOCIATE PM CLIENT SUPPORT ASSOCIATE Narrative [facility] - 11/06/2017 8:[address] Performed at [facility], [address] [place] [address] ??[phone] Diane Flower PA-C LAB_1 Performing Organization Address City/[facility] Code Phon e Number [facility] [phone] Creatinine / GFR (11/05/2017 4:20 PM CLIENT SUPPORT ASSOCIATE) Analysis Performed At Patho logist Time Signature Creatinine 0.98 0.73 - [facility] 1.18 mg/dl [facility] GFR, Estimated >60 >60 [facility] ml/min/1.7 [facility] 3m2 GFR, Est., If >60 >60 [facility] ml/min/1.7 [facility] 3m2 Specimen Anatomical Collection Method Collection Time Receive d Time (Source) Location / / Volume Laterality 11/05/2017 4:20 PM 7 8:26 CLIENT SUPPORT ASSOCIATE PM CLIENT SUPPORT ASSOCIATE Narrative [facility] - 11/06/2017 8:[address] Performed at [facility], [address] [place] [address] ??[phone] Diane Edwige Kluesner PA-C LAB_1 Performing Organization Address City/State/ZIP Code Phon e Number [facility] [phone] documented in this encounter Visit Diagnoses Diagnosis Essential hypertension (HRC) - Primary Unspecified essential hypertension documented in this encounter Care Teams Durability Technician Relationship Specialty Start Date End Date Unassigned, Provider PCP - General 08/13/00 05/31/[address] [place] [address] documented as of this encounter
--- OUTSIDE RECORDS SUMMARY | 2022-09-30 10:33 | XMS_ITS | Encounter Summary ---
:1955 Author Organization [employer] Address [address] [address] Care Team Providers Name Role Phone Unassigned, Provider Primary Care Provider Unavailable Reason for Visit Reason Comments BP CHECK,MD Encounter Details Date Type Department Care Team Description 10/24/2017 Office Visit [facility] Patric lala Essential hypertension (Prim maria dolores Dx); [address] Screening for human immunode ficiency virus; [place] [address] Need for hepatitis C screeni ng test [phone] Social History Tobacco Use Types Packs/Day Years Used Date Smoking Tobacco: Never Smokeless Tobacco: Never Alcohol Use Standard Drinks/Week Comments Yes 2 (1 standard drink = 0.6 oz pure alcoho l) Sex Assigned at Date Recorded Not on file documented as of this encounter Last Filed Vital Signs Vital Sign Reading Time Taken Comments Blood Pressure 134/86 10/24/2017 2:36 PM MOUNT LOADER Pulse 60 10/24/2017 2:36 PM MOUNT LOADER Temperature - - Respiratory Rate - - Oxygen Saturation - - Inhaled Oxygen Concentration - - Weight - - Height - - Body Mass Index - - documented in this encounter Patient Instructions Patient InstructionsDiane Flower PA-C - 10/24/2017 2:20 PM MOUNT LOADER Start Hydrochlorothiazide 12.5 mg, one tablet once daily. Continue Lisinopril 20 mg, one tablet once daily. Take medications together. Labs pending. You will be notified by phone with any lab abnormalities. Continue low sodium diet. Check blood pressure daily at home. Return to clinic in 1-2 weeks to recheck blood pressure. Return to clinic sooner if needed. Diane Flower PA-C [facility] [address] [place] [address] Appointment Line Phone number: [phone] Fax number: [phone] T LOADER documented in this encounter Progress Notes Leana Larsen - 10/24/2017 8:23 PM MOUNT LOADER Addended by: LEANA LARSEN on: 10/24/2017 08:23 PM Modules accepted: Orders T LOADER Diane Flower PA-C - 10/24/2017 2:20 PM CST SUBJECTIVE: [facility]. History of [...] pressure. Return to clinic sooner if needed. T LOADER documented in this encounter Plan of Treatment Not on filedocumented as of this encounter Procedures Procedure Name Priority Date/Time Associated Diagnosis Comme nts HIV 1/2 AG/AB 4TH Routine 10/24/2017 2:20 Screening for human Results for this GEN PM MOUNT LOADER immunodeficiency virus proce dure are in the results section. CREATININE / GFR Routine 10/24/2017 2:20 Essential hypertensio n Results for this PM MOUNT LOADER procedure are i n the results section. HEPATITIS C Routine 10/24/2017 2:20 Results for this ANTIBODY, WITH PM MOUNT LOADER procedure are in REFLEX the results section. SODIUM Routine 10/24/2017 2:20 Essential hypertension Re sults for this PM MOUNT LOADER procedure are i n the results section. POTASSIUM Routine 10/24/2017 2:20 Essential hypertension Re sults for this PM MOUNT LOADER procedure are i n the results section. documented in this encounter Results Hepatitis C Antibody, with Reflex (10/24/2017 2:20 PM MOUNT LOADER) [facility] Method Time Signature Anti-HCV Negative (Non NEGNR [facility] Comment: Antibodies to HCV not detected. Does not exclude the possibility of exposure to HCV. Specimen Anatomical Collection Method Collection Time Receive d Time (Source) Location / / Volume Laterality 10/24/2017 2:20 PM 7 8:27 MOUNT LOADER PM MOUNT LOADER Narrative [facility] - 10/24/2017 9:[address] Performed at [facility], [address] [place] [address] ??[phone] Diane Flower PA-C LAB_1 Performing Organization Address City/State/ZIP Code Phon e Number [facility] [phone] HIV 1/2 Ag/Ab 4th Generation (10/24/2017 2:20 PM MOUNT LOADER) [facility] gist Method Time Signature HIV 1/2 AG/AB Negative NEGNR [facility] 4thGEN (Non LABORATORIES Reactive) Comment: HIV-1 p24 Ag and HIV-1/HIV-2 Ab not detected. Specimen Anatomical Collection Method Collection Time Receive d Time (Source) Location / / Volume Laterality 10/24/2017 2:20 PM 7 8:27 MOUNT LOADER PM MOUNT LOADER Narrative [facility] - 10/24/2017 9:[address] Performed at [facility], [address] [place] [address] ??[phone] Diane Flower PA-C LAB_1 Performing Organization Address [facility] Phon e Number [facility] [phone] Sodium (10/24/2017 2:20 PM MOUNT LOADER) athologist Signature Sodium 138 136 - 145 [facility] mmol/L Specimen Anatomical Collection Method Collection Time Receive d Time (Source) Location / / Volume Laterality 10/24/2017 2:20 PM 7 8:26 MOUNT LOADER PM MOUNT LOADER Narrative [facility] - 10/24/2017 9:[address] Performed at [facility], [address] [place] [address] ??[phone] Diane Flower PA-C LAB_1 Performing Organization Address City/[facility] Phon e Number [facility] [phone] Potassium (10/24/2017 2:20 PM MOUNT LOADER) athologist Signature Potassium 4.2 3.5 - 5.1 [facility] mmol/L Specimen Anatomical Collection Method Collection Time Receive d Time (Source) Location / / Volume Laterality 10/24/2017 2:20 PM 7 8:26 MOUNT LOADER PM MOUNT LOADER Narrative [facility] - 10/24/2017 9:[address] Performed at [facility], [address] [place] [address] ??[phone] Diane Flower PA-C LAB_1 Performing Organization Address City/[facility] Phon e Number [facility] [phone] (ABNORMAL) Creatinine / GFR (10/24/2017 2:20 PM MOUNT LOADER) [facility] gist Method Time Signature Creatinine 1.40 [...] Volume Laterality 10/24/2017 2:20 PM 7 8:26 MOUNT LOADER PM MOUNT LOADER Narrative [facility] - 10/24/2017 9:[address] Performed at [facility], [address] [place] [address] ??[phone] Diane Flower PA-C LAB_1 Performing Organization Address City/State/ZIP Code Phon e Number [facility] [phone] documented in this encounter Visit Diagnoses Diagnosis Essential hypertension (HRC) - Primary Unspecified essential hypertension Screening for human immunodeficiency vir us Special screening examination for other specified viral diseases Need for hepatitis C screening test Special screening examination for other specified viral diseases documented in this encounter Care Teams Heating Plant Superintendent Relationship Specialty Start Date End Date Unassigned, Provider PCP - General 08/13/00 05/31/[address] [place] [address] documented as of this encounter
--- OUTSIDE RECORDS SUMMARY | 2022-09-30 10:33 | XMS_ITS | Encounter Summary ---
:1955 Author Organization [facility] Address [address] [place] [address] Care Team Providers Name Role Phone Unassigned, [...] on filedocumented in this encounter Care Teams Arcgis Developer Relationship Specialty Start Date End Date Unassigned, Provider PCP - General 08/13/00 05/31/20 [address] [place] [address] documented as of this encounter
--- OUTSIDE RECORDS SUMMARY | 2022-09-30 10:33 | XMS_ITS ---
:1955 Author Care Team Providers Name Role Phone Kate Groves Primary Care Provider Unavailable Allergies None recorded. Medications Name Status Start Date Stop Date ? ? acetaminophen 300 mg-codeine 30 mg tablet Active ? Not available amoxicillin 500 mg capsule Active ? Not a vailable atorvastatin 40 mg tablet Active ? Not av ailable Fluzone Quad 8445-4563 (PF) 60 mcg (15 mcg x 4)/0.5 [...]
--- OUTSIDE RECORDS SUMMARY | 2022-09-30 10:33 | XMS_ITS | Encounter Summary ---
:1955 Author [facility] Address [address] [place] [address] Care Team Providers Name Role Phone John Meyer MD Primary Care Provider Reason for Referral Consult/Transfer Care (Routine) - Incomplete Specialty Diagnoses / Procedures Referred By Contact Refer red To Contact Diagnoses Non-healing skin lesion of nose Diane Flower PA-C [address] [place] [address] Referral ID Status Reason Start Date Expiration Date Visits V isits Requested Authorized [id number] Incomplete 06/01/2020 11/28/2020 1 1 Scheduling Instructions [...] neoplasm of colon Diane Flower PA-C [address] [place] [address] Referral ID Status Reason Start Date Expiration Date Visits V isits Requested Authorized [id number] Incomplete 06/01/2020 11/28/2020 1 1 Scheduling Instructions [...] Preventative health care (Pr imary Dx); [address] Encounter for screening for malignant neoplasm of colon; [place] Non-healing ski [place] lesion of nose; [id number] Essential hypertension; [phone] Hypercholestero lemia Social History Tobacco Use Types [...] concerns. Diane Flower PA-C [email or web address] [address], [address] [place] [id number] Appointment Line Phone number: [phone] Fax number: [phone] Well Visit, Men 50 to 65: Care [...] can you learn more? 1. Go to [email or web address] or [email or web address]. 2. Enter K916 in the search box. Current as of: June 30, 2019?Content Version: 12.4 ?? [id number] [employer]. Care instructions adapted under license by your healthcare professional. If you have questions abouta medical condition or this instruction, always ask your healthcare professional. [employer] disclaims any warranty or liability for your [...] hypercholesterolemia documented in this encounter Care Teams Price Accuracy Supervisor Relationship Specialty Start Date End Date John Meyer MD PCP - General Family Practice 06/01/20 [place] [address] documented as of this encounter
--- OUTSIDE RECORDS SUMMARY | 2022-09-30 10:33 | XMS_ITS | Encounter Summary ---
:1955 Author [facility] Address [address], [place] [address] Care Team Providers Name Role Phone Unassigned, Provider Primary Care Provider Unavailable Reason for Visit Reason Comments BP CHECK,MD Encounter Details Date Type Department Care Team Description 11/12/2017 Office Visit [facility] Patric lala Essential hypertension [address] (Primary Dx) [place] [address] Social History Tobacco Use Types Packs/Day Years Used Date Smoking Tobacco: Never Smokeless Tobacco: Never Alcohol Use Standard Drinks/Week Comments Yes 2 (1 standard drink = 0.6 oz pure alcoho l) Sex Assigned at Date Recorded Not on file documented as of this encounter Last Filed Vital Signs Vital Sign Reading Time Taken Comments Blood Pressure 138/93 11/12/2017 4:06 PM CLAY DIGGER Pulse 77 11/12/2017 4:06 PM CLAY DIGGER Temperature - - Respiratory Rate - - Oxygen Saturation - - Inhaled Oxygen Concentration - - Weight - - Height - - Body Mass Index - - documented in this encounter Progress Notes Diane Flower PA-C - 11/12/2017 3:40 PM CST SUBJECTIVE: [facility] Cuello [facility] for [facility] recheck. History of [...] Encouraged return to clinic sooner if needed. DIGGER documented in this encounter Plan of Treatment Not on filedocumented as of this encounter Visit Diagnoses Diagnosis Essential hypertension (HRC) - Primary Unspecified essential hypertension documented in this encounter Care Teams Board Layer Relationship Specialty Start Date End Date Unassigned, Provider PCP - General 08/13/00 05/31/[address] [place] [address] documented as of this encounter
--- OUTSIDE RECORDS SUMMARY | 2022-09-30 10:33 | XMS_ITS | Encounter Summary ---
:1955 Author Organization [employer] Address [address], [place] [address] Care Team Providers Name Role Phone Unassigned, Provider Primary Care Provider Unavailable Reason for Visit Reason Comments BP CHECK,MD SHOT,FLU Encounter Details Date Type Department Care Team Description 10/09/2017 Office Visit [facility] Patric lala Essential hypertension (Prim maria dolores Dx); [address] [place] [address] Social History Tobacco Use Types Packs/Day Years Used Date Smoking Tobacco: Never Smokeless Tobacco: Never Alcohol Use Standard Drinks/Week Comments Yes 2 (1 standard drink = 0.6 oz pure alcoho l) Sex Assigned at Date Recorded Not on file documented as of this encounter Last Filed Vital Signs Vital Sign Reading Time Taken Comments Blood Pressure 151/87 10/09/2017 12:21 PM CHANGE BOOTH ATTENDANT Pulse 55 10/09/2017 12:21 PM CHANGE BOOTH ATTENDANT Temperature 36.5 ??C (97.7 ??F) 10/09/2017 12:09 PM CHANGE BOOTH ATTENDANT Respiratory Rate 16 10/09/2017 12:09 PM CHANGE BOOTH ATTENDANT Oxygen Saturation - - Inhaled Oxygen Concentration - - Weight 88 kg (194 lb) 10/09/2017 12:09 PM CHANGE BOOTH ATTENDANT Height 181 cm (5' 11.25) 10/09/2017 12:09 PM CHANGE BOOTH ATTENDANT Body Mass Index 26.87 10/09/2017 12:09 PM CHANGE BOOTH ATTENDANT documented in this encounter Patient Instructions Patient InstructionsDiane Flower PA-C - 10/09/2017 12:00 PM CHANGE BOOTH ATTENDANT Start Lisinopril 20 mg, one tablet once [...] pain/issues. Have previous medical records faxed to [facility] for review. Follow up sooner if needed. Diane Flower PA-C [facility] [address], [address] [place] [phone] Appointment Line Phone number: [phone] Fax number: [phone] High Blood Pressure: Care Instructions Your Care [...] can you learn more? 1. Go to [email or web address].net or [employer] ([place]) [employer]/Cashier Liverary. 2. Enter X567 in the search box. Current as of: June 17, 2016 Content Version: 11.3 ?? [id number] [employer]. DASH Diet: Care Instructions Your Care [...] can you learn more? 1. Go to [employer]/Brand.net or [employer]/Cashier Liverary. 2. Enter H967 in the search box. Current as of: February 10, 2017 Content Version: 11.3 ?? [id number] [employer]. GE BOOTH ATTENDANT documented in this encounter Progress Notes Diane Flower PA-C - 10/09/2017 12:00 PM CST SUBJECTIVE: Jake Cuello presents to [facility] to check blood pressure and for flu shot. Patient has history of high blood pressure and recently had blood pressure checked at [facility] screening for work. Blood pressure checked at [...] needed. Patient information given regarding flu immunization. GE BOOTH ATTENDANT documented in this encounter Plan of Treatment Not on filedocumented as of this encounter Visit Diagnoses Diagnosis Essential hypertension (HRC) - Primary Unspecified essential hypertension Needs flu shot Need for prophylactic vaccination and in oculation against influenza documented in this encounter Care Teams Cover Maker Relationship Specialty Start Date End Date Unassigned, Provider PCP - General 08/13/00 05/31/[address] [place] [address] documented as of this encounter
--- OUTSIDE RECORDS SUMMARY | 2022-09-30 10:33 | XMS_ITS | Encounter Summary ---
:1955 Author [facility] Address [address] [place] [address] Care Team Providers Name Role Phone Unassigned, Provider Primary Care Provider Unavailable Encounter Details Date Type Department Care Team Description 02/12/2002 Education Unknown, [facility] an [address] [place] [address] (Wo rk) Social History Tobacco Use Types Packs/Day Years Used Date Smoking Tobacco: Never Assessed Sex Assigned at Date Recorded Not on file documented as of this encounter Progress Notes Unknown, Physician - 02/12/2002 12:00 AM CSTPROVIDER - Deb Hogan, MS [facility]; ; DEPT: [facility] Phone Line S: Had completed a [...] behavior change(s) P: Sending LEDANIELA brochure jed [facility]; ; documented in this encounter Plan of Treatment Not on filedocumented as of this encounter Visit Diagnoses Not on filedocumented in this encounter Care Teams Topper Packer Relationship Specialty Start Date End Date Unassigned, Provider PCP - General 08/13/00 05/31/[address] [place] [address] documented as of this encounter
--- OUTSIDE RECORDS SUMMARY | 2022-09-30 10:33 | XMS_ITS | Encounter Summary ---
:1955 Author Organization [employer] Address [address] [address] Care Team Providers Name Role Phone Unassigned, Provider Primary Care Provider Unavailable Reason for Visit Reason Comments BP CHECK,MD Encounter Details Date Type Department Care Team Description 11/19/2017 Office Visit [facility] Essential hypertension [address] (Primary Dx) [place] [address] Social History Tobacco Use Types Packs/Day Years Used Date Smoking Tobacco: Never Smokeless Tobacco: Never Alcohol Use Standard Drinks/Week Comments Yes 2 (1 standard drink = 0.6 oz pure alcoho l) Sex Assigned at Date Recorded Not on file documented as of this encounter Last Filed Vital Signs Vital Sign Reading Time Taken Comments Blood Pressure 132/88 11/19/2017 3:47 PM WORD PROCESSING SUPERVISOR Pulse 64 11/19/2017 3:47 PM WORD PROCESSING SUPERVISOR Temperature - - Respiratory Rate - - Oxygen Saturation - - Inhaled Oxygen Concentration - - Weight - - Height - - Body Mass Index - - documented in this encounter Patient Instructions Patient InstructionsDiane Flower PA-C - 11/19/2017 3:40 PM WORD PROCESSING SUPERVISOR Discontinue Triamterene-Hydrochlorothiazide medication. Start Losartan 50 mg, one tablet once daily. Start Hydrochlorothiazide 12.5 mg, one tablet once daily. Take both tablets together in the morning. Return to clinic in one week to recheck blood pressure. Follow up sooner with any problems or concerns. Diane Flower PA-C [email or web address] [address], [address] [place] [address] Appointment Line Phone number: [phone] Fax number: [phone] PROCESSING SUPERVISOR documented in this encounter Progress Notes Diane [...] up sooner with any problems or concerns. PROCESSING SUPERVISOR documented in this encounter Plan of Treatment Not on filedocumented as of this encounter Visit Diagnoses Diagnosis Essential hypertension (HRC) - Primary Unspecified essential hypertension documented in this encounter Care Teams Wire Products Inspector Relationship Specialty Start Date End Date Unassigned, Provider PCP - General 08/13/00 05/31/[address] [place] [address] documented as of this encounter
--- OUTSIDE RECORDS SUMMARY | 2022-09-30 10:33 | XMS_ITS | Encounter Summary ---
:1955 Author Organization [facility] Address [address] [address] Care Team Providers Name Role Phone Unassigned, Provider Primary Care Provider Unavailable Reason for Visit Reason Comments BP CHECK,MD Encounter Details Date Type Department Care Team Description 10/29/2017 Office Visit [facility] Patric Das Essential hypertension (Prim maria dolores Dx); [address] [place] [address] Social History Tobacco Use Types Packs/Day Years Used Date Smoking Tobacco: Never Smokeless Tobacco: Never Alcohol Use Standard Drinks/Week Comments Yes 2 (1 standard drink = 0.6 oz pure alcoho l) Sex Assigned at Date Recorded Not on file documented as of this encounter Last Filed Vital Signs Vital Sign Reading Time Taken Comments Blood Pressure 127/90 10/29/2017 5:16 PM CLIENT TECHNICAL SUPPORT ASSOCIATE Pulse 57 10/29/2017 5:16 PM CLIENT TECHNICAL SUPPORT ASSOCIATE Temperature - - Respiratory Rate - - Oxygen Saturation - - Inhaled Oxygen Concentration - - Weight - - Height - - Body Mass Index - - documented in this encounter Patient Instructions Patient InstructionsDiane Flower PA-C - 10/29/2017 5:00 PM CLIENT TECHNICAL SUPPORT ASSOCIATE Discontinue Lisinopril and Hydrochlorothiazide. Start Triamterene-Hydrochlorothiazide 37.5-25 [...] Health Maintenance. Diane Flower PA-C [facility] [address], [address] [place] [address] Appointment Line Phone number: [phone] Fax number: [phone] NT TECHNICAL SUPPORT ASSOCIATE documented in this encounter Progress Notes Diane Flower PA-C - 10/29/2017 5:00 PM CST SUBJECTIVE: [facility]. Patient had fasting [...] recheck fasting cholesterol. Recommend Routine Health Maintenance. NT TECHNICAL SUPPORT ASSOCIATE documented in this encounter Plan of Treatment Not on filedocumented as of this encounter Results Potassium (11/05/2017 4:20 PM CLIENT TECHNICAL SUPPORT ASSOCIATE) P athologist Signature Potassium 3.8 3.5 - 5.1 [facility] mmol/L Specimen Anatomical Collection Method Collection Time Receive d Time (Source) Location / / Volume Laterality 11/05/2017 4:20 PM 7 8:26 CLIENT TECHNICAL SUPPORT ASSOCIATE PM CLIENT TECHNICAL SUPPORT ASSOCIATE Narrative [facility] - 11/06/2017 8:[address] Performed at [facility], [address] [place] [phone] Diane Flower PA-C LAB_1 Performing Organization Address City/State/ZIP Code Phon e Number [facility] [phone] Creatinine / GFR (11/05/2017 4:20 PM CLIENT TECHNICAL SUPPORT ASSOCIATE) Analysis Performed At Patho logist Time Signature Creatinine 0.98 0.73 - [facility] 1.18 mg/dl [facility] GFR, Estimated >60 >60 [facility] ml/min/1.7 [facility] 3m2 GFR, Est., If >60 >60 [facility] ml/min/1.7 [facility] 3m2 Specimen Anatomical Collection Method Collection Time Receive d Time (Source) Location / / Volume Laterality 11/05/2017 4:20 PM 7 8:26 CLIENT TECHNICAL SUPPORT ASSOCIATE PM CLIENT TECHNICAL SUPPORT ASSOCIATE Narrative [facility] - 11/06/2017 8:[address] Performed at [facility], [address] [place] [address], [place], [place] ??[phone] Diane Flower PA-C LAB_1 Performing Organization Address City/State/ZIP Code Phon e Number [facility] [phone] documented in this encounter Visit Diagnoses Diagnosis Essential hypertension (HRC) - Primary Unspecified essential hypertension Hypercholesterolemia Pure hypercholesterolemia Essential hypertension (HRC) - Primary Unspecified essential hypertension documented in this encounter Care Teams Filtering Machine Tender Helper Relationship Specialty Start Date End Date Unassigned, Provider PCP - General 08/13/00 05/31/[address] [place] [address] documented as of this encounter
--- OUTSIDE RECORDS SUMMARY | 2022-09-30 10:33 | XMS_ITS | Encounter Summary ---
:1955 Author Organization [facility] Address [address], [place] [address] Care Team Providers Name Role Phone Unassigned, Provider Primary Care Provider Unavailable Encounter Details Date Type Department Care Team Description 03/13/2011 PN Conversion Only [facility] [address]man, Travel Clinic PUNCHBOARD FILLING MACHINE OPERATOR, HEADING AND PRIMING TOOL SETTER [address] [place] [place] [address] [phone] (Wo rk) Social History Tobacco Use Types Packs/Day Years Used Date Smoking Tobacco: Never Assessed Sex Assigned at Date Recorded Not on file documented as of this encounter Plan of Treatment Not on filedocumented as of this encounter Visit Diagnoses Not on filedocumented in this encounter Care Teams Architect Marine Relationship Specialty Start Date End Date Unassigned, Provider PCP - General 08/13/00 05/31/20 [address] [place] [address] documented as of this encounter
--- OUTSIDE RECORDS SUMMARY | 2022-09-30 10:33 | XMS_ITS | Encounter Summary ---
:1955 Author Organization [employer] [employer] Address [address] [place] [address] Care Team Providers Name Role Phone John Meyer MD Primary Care Provider Reason for Visit Reason Comments COVID Screening Encounter Details Date Type Department Care Team Description 06/01/2020 Telephone [facility] Unassigned, Provider COVID Screening [address] [place] [address] [place] [address] Social History Tobacco Use Types Packs/Day Years [...] I will help schedule your visit now. [Senior Linux Unix Administrator: Complete Primary Care [facility] decision tree and continue scheduling.] Elvin Menchaca documented in this encounter Plan of Treatment Not on filedocumented as of this encounter Visit Diagnoses Not on filedocumented in this encounter Care Teams Millroom Supervisor Relationship Specialty Start Date End Date John Meyer MD PCP - General Family Practice 06/01/20 [address] [place] [address] documented as of this encounter
--- OUTSIDE RECORDS SUMMARY | 2022-09-30 10:33 | XMS_ITS | Encounter Summary ---
:1955 Author Organization [facility] Address [address], [place] [address] Care Team Providers Name Role Phone Unassigned, Provider Primary Care Provider Unavailable Encounter Details Date Type Department Care Team Description 11/08/2005 Office Visit [facility] [address] Guzman, Clinic ANDREA MUELLER [address] [place] [address] [place] [address] [phone] (Wo rk) Social History Tobacco Use Types [...] 0932 Note Time: 11/08/05 0001 Status: Signed Manager Home Improvement: YANELY Strange (Nurse Practitioner) Travel Clinic Initial [...] ~Shorthand Note completed on: 11/08/2005 1:19 PM CH MAKER documented in this encounter Plan of Treatment Not on filedocumented as of this encounter Visit Diagnoses Not on filedocumented in this encounter Care Teams Nurse Orthopaedic Relationship Specialty Start Date End Date Unassigned, Provider PCP - General 08/13/00 05/31/[address] [place] [address] documented as of this encounter
--- OUTSIDE RECORDS SUMMARY | 2022-09-30 10:33 | XMS_ITS | Encounter Summary ---
:[address] [facility] Address [address] [place] [address] Care Team Providers Name Role Phone Unassigned, [...] Bruce Madden, Provider - 01/29/2005 12:00 AM VOICE COACH documented in this encounter Plan of Treatment Not on filedocumented as of this encounter Visit Diagnoses Not on filedocumented in this encounter Care Teams Instrument Lens Inspector Relationship Specialty Start Date End Date Unassigned, Provider PCP - General 08/13/00 05/31/[address] [place] [address] documented as of this encounter
--- OUTSIDE RECORDS SUMMARY | 2022-09-30 10:33 | XMS_ITS | Encounter Summary ---
:1955 Author Organization [facility] Address [address], [place] [address] Care Team Providers Name Role Phone Unassigned, Provider Primary Care Provider Unavailable Encounter Details Date Type Department Care Team Description 07/11/2006 Office Visit [facility] [address] Davi Bach MD Clinic [address] [place] [address] [place] [address] [place] [address] [place] [address] [phone] Social History Tobacco Use Types Packs/Day Years [...] 0000 Note Time: 07/11/06 0001 Status: Signed Dolphin Researcher: Corina Yusuf APRN, CNP (Nurse Practitioner) Travel Clinic Return Visit Patient returns to the travel clinic Individually for a follow-up visit. Patient was last seen on 11/08/2005. for trip to [facility] Patient returns for: immunization, Hep A #2 [...] on filedocumented in this encounter Care Teams Car Lot Attendant Relationship Specialty Start Date End Date Unassigned, Provider PCP - General 08/13/00 05/31/[address] [place] [address] documented as of this encounter
--- OUTSIDE RECORDS SUMMARY | 2022-09-30 10:33 | XMS_ITS | Encounter Summary ---
:1955 Author [facility] Address [address], [place] [address] Care Team Providers Name Role Phone Unassigned, Provider Primary Care Provider Unavailable Encounter Details Date Type Department Care Team Description 07/10/2006 PN Conversion Only FIXED INCOME DIRECTOR [address] [place] [address] Social History Tobacco Use Types Packs/Day Years Used Date Smoking Tobacco: Never Assessed Sex Assigned at Date Recorded Not on file documented as of this encounter Plan of Treatment Not on filedocumented as of this encounter Visit Diagnoses Not on filedocumented in this encounter Care Teams Loom Technician Relationship Specialty Start Date End Date Unassigned, Provider PCP - General 08/13/00 05/31/[address] [place] [address] documented as of this encounter
== END 2022-09-30 10:13 | disposition home or self-care (01) ==
LOC: OP CLINIC 10:13
PROVIDERS: PCP Family Medicine; Visit Provider Surgery
DX: Z12.11 Encounter for screening for malignant neoplasm of colon (principal); K62.1 Rectal polyp; K57.30 Diverticulosis of large intestine without perforation or abscess without bleeding; Z86.010 Personal history of colon polyps
CPT/HCPCS: 45380; 88305; 99153; J2250; J3010

== ENCOUNTER 2022-11-26 10:15 | Outpatient (CLI) | payer MEDICARE, SELFPAY ==
[2022-11-26 12:27] LABS: Cholesterol* 164 mg/dL (90-199); Triglycerides* 82 mg/dL (40-149)
[2022-11-26 12:28] LABS: HDL Cholesterol* 54 mg/dL (>=40); LDL Cholesterol Calculated 94 mg/dL (<100)
== END 2022-11-26 10:16 | disposition home or self-care (01) ==
LOC: NFLDREF 10:15
PROVIDERS: PCP Family Medicine; Visit Provider Family Medicine
DX: E78.5 Hyperlipidemia, unspecified (principal)
CPT/HCPCS: 80061

== ENCOUNTER 2023-09-19 14:09 | Outpatient (CLI) | payer MEDICARE, SELFPAY | END 2023-09-19 14:10 | disposition home or self-care (01) | PROVIDERS: PCP Family Medicine; Visit Provider Family Medicine | DX: Z00.00 Encounter for general adult medical examination without abnormal findings (principal); I10 Essential (primary) hypertension; E78.2 Mixed hyperlipidemia | CPT/HCPCS: 80048; 80061; 84153; 84460 ==

== ENCOUNTER 2024-06-02 10:47 | Outpatient (CLI) | payer MEDICARE, SELFPAY ==
--- OUTSIDE RECORDS SUMMARY | 2024-06-02 10:49 | XMS_ITS | Clinical Summary ---
Author Organization [facility] Address [place], [place] [address] Care Team Providers Care Videogame Designer Name Role Phone Dotty Matias Primary Care Provider + Allergies No known active allergies Medications No known medications Active Problems Problem Noted Date Diagnosed Date Ganglion cyst of wrist 08/23/2013 Serrated adenoma of colon 10/19/2012 Herniated cervical disc 03/02/2012 PPD positive 07/02/2011 Immunizations Name Administration Dates Next Due DTaP 08/21/2005 Hepatitis A (Adult) 07/11/2006,11/08/2005 Inactivated Polio Vaccine 11/08/2005 Influenza A (H1N1), Inactiva shawna (Age >=3 Years) 12/12/2009 Influenza, IIV3 (Age >=3 years) 08/23/20 13,07/28/2012,09/04/2011,08/24 Meningococcal Vaccine 11/08/2005 Tdap 07/08/2013 Typhoid (injectable) 09/04/2011,11/08/2005 Yellow Fever 11/08/2005 Family History Medical History Relation Name Comments Arthritis Mother Heart Disease Other Relation Name Status Comments Brother Alive 2 Father (Age 64) massive hr t attack Mother Alive Other Sister Alive 2 Social History Tobacco Use Types Packs/Day Years Used Date Smoking Tobacco: Never Smokeless Tobacco: Former Chew Quit: 11/10/1978 Tobacco Cessation:Counseling Given: No Alcohol Use Standard Drinks/Week Comments Yes 4.2 (1 standard drink = 0.6 oz p ure alcohol) Sex and Gender Information Value Date Recorded Sex Assigned at Not on file Gender Identity Not on file Sexual Orientation Not on file Obstetrics History Last Filed Vital Signs Vital Sign Reading Time Taken Comments Blood Pressure 146/74 08/23/2013 11:16 AM CDT Pulse 60 08/23/2013 10:39 AM CDT Temperature 36.4 ??C (97.5 ??F) 08/23/2013 10:39 AM C DT Respiratory Rate - - Oxygen Saturation - - Inhaled Oxygen Concentration - - Weight 83.9 kg (185 lb) 08/23/2013 10:39 AM CDT Height 181.6 cm (5' 11.5) 08/23/2013 10:39 AM C DT Body Mass Index 25.45 08/23/2013 10:39 AM CDT Plan of Treatment Health Maintenance Due Date Last Done Comments Depression screening for age 12+ 1968 BMI (ht and wt on same day) for age 18+ 1974 Hepatitis C screening for ag e 18-79 1974 Zoster (shingles) series for age 50+ (1 of 2) 2006 Lipids for age 45-75 07/02/2016 07/02/2011 Pneumococcal series for age 65+ (1 of 1 - PCV) 2021 Colonoscopy through age 75 09/11/2022 09/11/2012 Tetanus booster 07/08/2023 07/08/2013 COVID-19 vaccine series (3 2022- season) 2023 02/13/2021, 01/23/2021 Influenza for age 65+ 07/11/2024 08/23/2013 , 07/28/2012, 09/04/2011, Additional history exists Tdap Completed 07/08/2013 Procedures Procedure Name Priority Date/Time Associated Diagnosis Comments COLONOSCOPY SCREENING Routine 09/11/2012 12:00 AM CDT Special screening for malignant neoplasms, colon LIPID PANEL Routine 07/02/2011 9:01 AM CDT Screening for lipoid disorders from Last 3 Months or Most Recently Relevant to Health Maintenance Results * COLONOSCOPY SCREENING (09/11/2012 12:00 AM CDT) Narrative 09/11/2012 12:00 AM CDT Procedure Note Scanner - 09/11/2012 12:00 AM CDT Dotty DE LEON GI PROCEDURE ORD * (ABNORMAL) LIPID PANEL (07/02/2011 9:01 AM CDT) CHOLESTEROL,TOTAL 223(H) 110 - 199 mg/dL [facility] TRIGLYCERIDES 83 40 - 149 mg/dL [facility] HDL CHOLESTEROL 48 >40 mg/dL [facility] CHOL/HDL RATIO 4.65(H) <4.51 [facility] LDL CHOLESTEROL 158(H) <131 mg/dL [facility] PATIENT STATUS Fasting [facility] Blood specimen (specimen) BLOOD SPECIMEN / Unknown 07/02/2011 9:01 AM CDT 07/02/2011 8:55 AM CDT Bear Lainez MD CHEMISTRY [facility] INTERNAL ZIP [address] [address] from Last 3 Months or Most Recently Relevant to Health Maintenance Care Teams Videogame Designer Relationship Specialty Start Date End Date Dotty Matias PA [address] [address] PCP - General Family Practice 09/04/11
--- OUTSIDE RECORDS SUMMARY | 2024-06-02 10:49 | XMS_ITS | Clinical Summary ---
Author Organization [facility] Address [address] [place] [address] Care Team Providers Care Melter Loader Name Role Phone John Meyer MD Primary Care Provider Unavailab le Source Comments You are receiving this document as you are listed as the primary care provider,follow-up provider, or the patient has been referred to you for consultation.This is in compliance with the Medicare and[facility] EHR Incentive Program,which states Providers who transition their patient to another setting of careor provider of care or refers their patient to another provider of care shouldprovide summary care record for each transition of care or referral. [facility] Allergies No known active allergies Medications Medication Sig Dispensed Refills Start Date End Date Status magnesium oxide (AKA MAG-OX 400) 250 MG tablet 250 mg two times a day with meals. Active ibuprofen (MOTRIN) 200 MG tablet Take 400 mg by mouth two times daily as needed for Pain. Active atorvastatin (LIPITOR) 40 MG tabletIndications:Hype rcholesterolemia Take 1 Tablet by mouth daily. 90 Tablet 3 06/01/2020 Active lisinopril-hydroCHLORO thiazide (PRINZIDE) 20-12.5 MG tabletIndications:Esse ntial hypertension (HRC) Take 1 Tablet by mouth daily. 90 Tablet 3 07/26/2020 Active Active Problems Problem Noted Date Diagnosed Date Basal cell carcinoma (BCC) of skin of nose 10/30 Overview: Excision 08/2020, per patient Disorder of rotator cuff 09/23/2018 Hypercholesterolemia 10/29/2017 Essential hypertension 10/09/2017 Adenomatous polyp of colon 10/19/2012 Immunizations Name Administration Dates Next Due DTaP 08/21/2005 Flu Vac (3+ yrs) 08/23/2013, 2,09/04/2011,08/24 Flu Vac Preserv Free (3+yrs) 09/04/2011,08/24/20 09 Fluzone Qiv Multidose Vial 0 .25 (6-35 Mos) 07/23/2016 HepA Adult (19+ yrs) 07/11/2006,11/08/2005 Hepatitis B - Surface Antibo dy Positive 11/09/1995 IPV (Polio) 11/08/2005 Influenza H2E1-31 12/12/2009 Influenza IIV4 (Quadrivalent ) 0.5mL (47215) 07/26/2020,08/18/2019,07/25/2018,10/09 Influenza, Unspecified Formulation 07/25/2018 MPSV4 (Menomune) 11/08/2005 Meningococcal MCV4, Unspecif ied Formulation 11/08/2005 Pfizer Monovalent 12+ Purple Top 02/13/2021,01/08 Td 08/21/2005 Tdap 07/08/2013 Typhoid (Typhim Vi, IM) 09/04/2011,11/08/2005 Typhoid (Vivotif, Oral) 11/08/2005 Typhoid, Unspecified Formulation 11/08/2005 YF (Yellow Fever) 11/08/2005 Zoster RZV (Shingrix) 11/24/2018,07/25/2018 Family History Medical History Relation Name Comments Coronary Artery Disease Father Relation Name Status Comments Father (Age 64) Myocardial infarction Social History Tobacco Use Types Packs/Day Years Used Date Smoking Tobacco: Never Smokeless Tobacco: Never Alcohol Use Standard Drinks/Week Comments Not Currently 0 (1 standard drink = 0.6 oz pur e alcohol) PHQ-2 Answer Date Recorded PHQ-2 Score 0 06/01/2020 Sex and Gender Information Value Date Recorded Sex Assigned at Not on file Gender Identity Not on file Sexual Orientation Not on file Last Filed Vital Signs Vital Sign Reading Time Taken Comments Blood Pressure 132/71 10/30/2020 9:32 AM INTEGRATED SPECIALIST Pulse 43 10/30/2020 9:32 AM INTEGRATED SPECIALIST Temperature 36.5 ??C (97.7 ??F) 11/05/2017 4:18 PM CS T Respiratory Rate 16 11/05/2017 4:18 PM INTEGRATED SPECIALIST Oxygen Saturation - - Inhaled Oxygen Concentration - - Weight 82.1 kg (181 lb) 10/30/2020 9:24 AM INTEGRATED SPECIALIST Height 181 cm (5' 11.25) 10/30/2020 9:24 AM INTEGRATED SPECIALIST Body Mass Index 25.07 10/30/2020 9:24 AM INTEGRATED SPECIALIST Plan of Treatment Health Maintenance Due Date Last Done Comments PSA Screening Discussion 1955 Prediabetes: HGBA1C 1955 Colonoscopy 09/11/2017 09/11/2012 (Comp leted), 09/11/2012 (Completed) Adult Preventive Visit 06/01/2021 , 06/01/2020 (Completed) Med Monitoring Renal (Creatinine) 06/15/2021 06/15/2020, 11/05/2017, 10/24/2017 Med Monitoring Renal (Potassium) 06/15/2021 06/15/2020, 11/05/2017, 10/24/2017 Med Monitoring Renal (Sodium) 06/15/2021 06/15/2020, 10/24/2017 Pneumococcal 65+ Yrs (1 - PCV) 2021 Cholesterol 10/30/2021 10/30/2020, 1011/2016 (Completed) DTaP/Tdap/Td (3 - Tdap) 07/08/2023 07/08/20 13, 08/21/2005, 08/21/2005 COVID-19 Vaccine (3 - 2022-24 season) 2023 02/13/2021, 01/23/2021 Influenza (#1) 2024 07/26/2020, 100 07/2019, 07/25/2018, Additional history exists IPV (Polio) Aged Out 11/08/2005 No longer eligi ble based on patient's age to complete this topic MCV4 Aged Out 11/08/2005, 11/08/2005 No lo nger eligible based on patient's age to complete this topic HepA Aged Out 07/11/2006, 11/08/2005 No lo nger eligible based on patient's age to complete this topic Hep C Screening (Preventive Services) Completed 10/24/2017, 10/24/2017 (Completed) Zoster/Shingles Completed 11/24/2018, 07/25/2018 Hib Aged Out No longer eligi ble based on patient's age to complete this topic Procedures Procedure Name Priority Date/Time Associated Diagnosis Comments LIPID PANEL & DIRECT LDL (IF NEEDED) Routine 10/30/2020 9:28 AM INTEGRATED SPECIALIST Encounter for biometric screening Hypercholesterolemia POTASSIUM Routine 06/15/2020 2:18 PM CDT Essential hypertension SODIUM Routine 06/15/2020 2:18 PM CDT Essential hypertension CREATININE / GFR Routine 06/15/2020 2:18 PM CDT Essential hypertension HEPATITIS C ANTIBODY, WITH REFLEX Routine 10/24/2017 2:20 PM INTEGRATED SPECIALIST from Last 3 Months or Most Recently Relevant to Health Maintenance Results * Lipid Panel and Direct LDL(If Needed) (10/30/2020 9:28 AM INTEGRATED SPECIALIST) Cholesterol 143 0 - 199 mg/dL 10/30/2020 8:27 PM INTEGRATED SPECIALIST [employer] [facility] Triglyceride 65 <=149 mg/dL 10/30/2020 8:27 PM INTEGRATED SPECIALIST [facility] HDL Cholesterol 50 >=40 mg/dL 10/30/2020 8:27 PM INTEGRATED SPECIALIST [facility] LDL, Calculated 80 <130 mg/dL 10/30/2020 8:27 PM INTEGRATED SPECIALIST [facility] Non HDL Chol, Calculated 93 mg/dL 10/30/2020 8:27 PM INTEGRATED SPECIALIST [facility] Cholesterol/HDL Ratio 2.9 10/30/2020 8:27 PM INTEGRATED SPECIALIST [facility] Hours Fasting 12 10/30/2020 8:27 PM INTEGRATED SPECIALIST [facility] [employer] Blood Venipuncture / Unknown 10/30/2020 9:28 AM INTEGRATED SPECIALIST 10/30/2020 9:28 AM INTEGRATED SPECIALIST Diane Flower PA-C LAB_1 [employer] [facility] [address] [place] [address], [facility] [phone] [facility] [employer] [place] [address] [place], [place] [address] [phone] * Creatinine / GFR (06/15/2020 2:18 PM CDT) Creatinine 1.08 0.73 - 1.18 mg/dL 06/15/2020 8:11 PM CDT [facility] GFR, Estimated >60 >60 mL/min/1. 73m2 06/15/2020 8:11 PM CDT [facility] Blood Venipuncture / Unknown 06/15/2020 2:18 PM CDT 06/15/2020 2:18 PM CDT Diane Flower PA-C LAB_1 Performing Organization Address [facility]/ZIP Co de Phone Number [facility] [address] [place] [address], [facility] [phone] * Sodium (06/15/2020 2:18 PM CDT) Sodium 139 136 - 145 mmol/L 06/15/2020 8:11 PM CDT [facility] Blood Venipuncture / Unknown 06/15/2020 2:18 PM CDT 06/15/2020 2:18 PM CDT Diane Flower PA-C LAB_1 Performing Organization Address [facility] Co de Phone Number [facility] [address] [place] [address], [facility] [phone] * Potassium (06/15/2020 2:18 PM CDT) Potassium 4.2 3.5 - 5.1 mmol/L 06/15/2020 8:11 PM CDT [facility] Blood Venipuncture / Unknown 06/15/2020 2:18 PM CDT 06/15/2020 2:18 PM CDT Diane Flower PA-C LAB_1 Performing Organization Address [facility]/ZIP Co de Phone Number [facility] [address] [address], [facility] [phone] * Hepatitis C Antibody, with Reflex (10/24/2017 2:20 PM INTEGRATED SPECIALIST) Anti-HCV Negative (Non Reactive) [facility] Comment: Antibodies to HCV not detected. Does not exclude the possibility of exposure to HCV. 10/24/2017 2:20 PM INTEGRATED SPECIALIST 10/24/2017 8:27 PM INTEGRATED SPECIALIST Narrative [facility] - 10/24/2017 9:13 PM INTEGRATED SPECIALIST Performed at [facility], [address] [place] [phone] Diane Flower PA-C LAB_1 [facility] [phone] from Last 3 Months or Most Recently Relevant to Health Maintenance Care Teams Melter Loader Relationship Specialty Start Date End Date John Meyer MD PCP - General Family Practice 06/01/20
== END 2024-06-02 10:48 | disposition home or self-care (01) ==
PROVIDERS: PCP Family Medicine; Visit Provider Family Medicine
DX: R74.8 Abnormal levels of other serum enzymes (principal); E78.2 Mixed hyperlipidemia; I10 Essential (primary) hypertension
CPT/HCPCS: 80048; 80061; 80076

== ENCOUNTER 2024-09-13 12:01 | Outpatient (CLI) | payer MEDICARE, SELFPAY ==
--- OUTSIDE RECORDS SUMMARY | 2024-09-13 12:04 | XMS_ITS | Clinical Summary ---
Author Organization [email or web address] Address [place], [place] [address] Care Team Providers Care Melter Supervisor Electric Arc Furnace Name Role Phone Dotty Matias Primary Care [...] Tetanus booster 07/08/2023 07/08/2013 COVID-19 vaccine series ( season) 2024 02/13/2021, 01/23/2021 Influenza for age 65+ 07/11/2024 [...] CDT) CHOLESTEROL,TOTAL 223(H) 110 - 199 mg/dL [facility] TRIGLYCERIDES 83 40 - 149 mg/dL [facility] HDL CHOLESTEROL 48 >40 mg/dL [facility] CHOL/HDL RATIO 4.65(H) <4.51 [facility] LDL CHOLESTEROL 158(H) <131 mg/dL [facility] PATIENT STATUS Fasting [facility] Blood specimen (specimen) BLOOD SPECIMEN / Unknown 07/02/2011 9:01 AM CDT 07/02/2011 8:55 AM CDT Bear Lainez MD CHEMISTRY [facility] INTERNAL ZIP [phone] [address] from Last 3 Months or Most Recently Relevant to Health Maintenance Care Teams Melter Supervisor Electric Arc Furnace Relationship Specialty Start Date End Date Dotty Matias [place] [address] [id number] PCP - General Family Practice 09/04/11
--- OUTSIDE RECORDS SUMMARY | 2024-09-13 12:04 | XMS_ITS | Clinical Summary ---
Author Organization [facility] Address [address] [place] [address] Care Team Providers Care Fruit Picker Name Role Phone John Meyer MD Primary Care Provider Unavailab le Source Comments You are receiving this document as you are listed as the primary care provider,follow-up provider, or the patient has been referred to you for consultation.This is in compliance with the Medicare and[facility] E[facility] Incentive Program,which states Providers who [...] carcinoma (BCC) of skin of nose 10/30 Overview (10/30/2020): Excision 08/2020, per patient Disorder of rotator [...] dy Positive 11/09/1995 IPV (Polio) 11/08/2005 Influenza L9A8-12 12/12/2009 Influenza IIV4 (Quadrivalent ) 0.5mL (70653) 07/26/2020,08/18/2019,07/25/2018,10/09 Influenza, Unspecified Formulation 07/25/2018 MPSV4 (Menomune) [...] Comments Blood Pressure 132/71 10/30/2020 9:32 AM FINISH INSPECTOR Pulse 43 10/30/2020 9:32 AM FINISH INSPECTOR Temperature 36.5 ??C (97.7 ??F) 11/05/2017 4:18 PM CS T Respiratory Rate 16 11/05/2017 4:18 PM FINISH INSPECTOR Oxygen Saturation - - Inhaled Oxygen Concentration - - Weight 82.1 kg (181 lb) 10/30/2020 9:24 AM FINISH INSPECTOR Height 181 cm (5' 11.25) 10/30/2020 9:24 AM FINISH INSPECTOR Body Mass Index 25.07 10/30/2020 9:24 AM FINISH INSPECTOR Plan of Treatment Health Maintenance Due Date Last Done Comments PSA Screening Discussion 1955 Prediabetes: HGBA1C 1955 Colonoscopy 09/11/2017 09/11/2012 (Comp leted), 09/11/2012 (Completed) Adult Preventive Visit 06/01/2021 0, 06/01/2020 (Completed) Med Monitoring Renal (Creatinine) 06/15/2021 06/15/2020, 11/05/2017, 10/24/2017 Med Monitoring Renal (Potassium) 06/15/2021 06/15/2020, 11/05/2017, 10/24/2017 Med Monitoring Renal (Sodium) 06/15/2021 06/15/2020, 10/24/2017 Pneumococcal 65+ Yrs (1 - PCV) 2021 Cholesterol 10/30/2021 10/30/2020, 11/2016 (Completed) DTaP/Tdap/Td (3 - Tdap) 07/08/2023 07/08/20 13, 08/21/2005, 08/21/2005 COVID-19 Vaccine (3 - season) 2024 02/13/2021, 01/23/2021 Influenza (#1) 2024 07/26/2020, 100 07/2019, 07/25/2018, Additional history exists RSV (1 - 1-dose 75+ series) 2031 IPV (Polio) Aged Out 11/08/2005 No longer [...] on patient's age to complete this topic RSV Aged Out No longer eligi ble based on patient's age to complete this topic Procedures Procedure Name Priority Date/Time Associated Diagnosis Comments LIPID PANEL & DIRECT LDL (IF NEEDED) Routine 10/30/2020 9:28 AM FINISH INSPECTOR Encounter for biometric screening Hypercholesterolemia POTASSIUM Routine 06/15/2020 2:18 PM CDT Essential hypertension SODIUM Routine 06/15/2020 2:18 PM CDT Essential hypertension CREATININE / GFR Routine 06/15/2020 2:18 PM CDT Essential hypertension HEPATITIS C ANTIBODY, WITH REFLEX Routine 10/24/2017 2:20 PM FINISH INSPECTOR from Last 3 Months or Most Recently Relevant to Health Maintenance Results * Lipid Panel and Direct LDL(If Needed) (10/30/2020 9:28 AM FINISH INSPECTOR) Cholesterol 143 0 - 199 mg/dL 10/30/2020 8:27 PM FINISH INSPECTOR [facility] Triglyceride 65 <=149 mg/dL 10/30/2020 8:27 PM FINISH INSPECTOR [facility] HDL Cholesterol 50 >=40 mg/dL 10/30/2020 8:27 PM FINISH INSPECTOR [facility] LDL, Calculated 80 <130 mg/dL 10/30/2020 8:27 PM FINISH INSPECTOR [facility] Non HDL Chol, Calculated 93 mg/dL 10/30/2020 8:27 PM FINISH INSPECTOR [facility] Cholesterol/HDL Ratio 2.9 10/30/2020 8:27 PM FINISH INSPECTOR [facility] Hours Fasting 12 10/30/2020 8:27 PM FINISH INSPECTOR [employer] [place] Blood Venipuncture / Unknown 10/30/2020 9:28 AM FINISH INSPECTOR 10/30/2020 9:28 AM FINISH INSPECTOR Diane Flower PA-C LAB_1 [facility] [address] [address], [facility] [phone] [employer] [address] [place] [address], [facility] [phone] * Creatinine / GFR (06/15/2020 2:18 PM CDT) Creatinine 1.08 0.73 - 1.18 mg/dL 06/15/2020 8:11 PM CDT [facility] GFR, Estimated >60 >60 mL/min/1. 73m2 06/15/2020 8:11 PM CDT [facility] Blood Venipuncture / Unknown 06/15/2020 2:18 PM CDT 06/15/2020 2:18 PM CDT Diane Flower PA-C LAB_1 Performing Organization Address City/[facility]/ZIP Co de Phone Number [facility] [address] [phone] * Sodium (06/15/2020 2:18 PM CDT) Sodium 139 136 - 145 mmol/L 06/15/2020 8:11 PM CDT [facility] Blood Venipuncture / Unknown 06/15/2020 2:18 PM CDT 06/15/2020 2:18 PM CDT Diane Flower PA-C LAB_1 [facility] [address] [place] [address], [facility] [phone] * Potassium (06/15/2020 2:18 PM CDT) Potassium 4.2 3.5 - 5.1 mmol/L 06/15/2020 8:11 PM CDT [facility] Blood Venipuncture / Unknown 06/15/2020 2:18 PM CDT 06/15/2020 2:18 PM CDT Diane Edwige Flower PA-C LAB_1 Performing Organization Address [facility]/ZIP Co de Phone Number [facility] [address] [address], [facility] [phone] * Hepatitis C Antibody, with Reflex (10/24/2017 2:20 PM FINISH INSPECTOR) Anti-HCV Negative (Non Reactive) [facility] Comment: Antibodies to HCV not detected. Does not exclude the possibility of exposure to HCV. 10/24/2017 2:20 PM FINISH INSPECTOR 10/24/2017 8:27 PM FINISH INSPECTOR Narrative [facility] - 10/24/2017 9:13 PM FINISH INSPECTOR Performed at [facility], [address] [place] [address] ??[id number] Diane Edwige Flower PA-C LAB_1 Performing Organization Address [facility] Co de Phone Number [facility] [employer] [phone] from Last 3 Months or Most Recently Relevant to Health Maintenance Care Teams Fruit Picker Relationship Specialty Start Date End Date John Meyer MD PCP - General Family Practice 06/01/20
== END 2024-09-13 12:02 | disposition home or self-care (01) ==
PROVIDERS: PCP Family Medicine; Visit Provider Family Medicine
DX: R74.8 Abnormal levels of other serum enzymes (principal); E78.2 Mixed hyperlipidemia; I10 Essential (primary) hypertension
CPT/HCPCS: 80048; 80074; 80076; 82103; 82390; 86038

== ENCOUNTER 2024-10-11 10:03 | Outpatient (CLI) | payer MEDICARE, SELFPAY ==
--- OUTSIDE RECORDS SUMMARY | 2024-10-11 10:04 | XMS_ITS | Clinical Summary ---
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 Name Role Phone John Meyer MD Primary Care Provider Unavailab le Source Comments You are receiving this document as you are listed as the primary care provider,follow-up provider, or the patient has been referred to you for consultation.This is in compliance with the Medicare and[facility] E[facility] Incentive Program,which states Providers who [...] dy Positive 11/09/1995 IPV (Polio) 11/08/2005 Influenza A3F3-41 12/12/2009 Influenza IIV4 (Quadrivalent ) 0.5mL (38922) 07/26/2020,08/18/2019,07/25/2018,10/09 Influenza, Unspecified Formulation 07/25/2018 MPSV4 (Menomune) [...] Comments Blood Pressure 132/71 10/30/2020 9:32 AM STOCK HANDLER FLOORPERSON Pulse 43 10/30/2020 9:32 AM STOCK HANDLER FLOORPERSON Temperature 36.5 C (97.7 F) 11/05/2017 4:18 PM STOCK HANDLER FLOORPERSON Respiratory Rate 16 11/05/2017 4:18 PM STOCK HANDLER FLOORPERSON Oxygen Saturation - - Inhaled Oxygen Concentration - - Weight 82.1 kg (181 lb) 10/30/2020 9:24 AM STOCK HANDLER FLOORPERSON Height 181 cm (5' 11.25) 10/30/2020 9:24 AM STOCK HANDLER FLOORPERSON Body Mass Index 25.07 10/30/2020 9:24 AM STOCK HANDLER FLOORPERSON Plan of Treatment Health Maintenance Due Date [...] on patient's age to complete this topic Infant RSV Aged Out No longer eligi ble based on patient's age to complete this topic Procedures Procedure Name Priority Date/Time Associated Diagnosis Comments LIPID PANEL & DIRECT LDL (IF NEEDED) Routine 10/30/2020 9:28 AM STOCK HANDLER FLOORPERSON Encounter for biometric screening Hypercholesterolemia POTASSIUM Routine 06/15/2020 2:18 PM CDT Essential hypertension SODIUM Routine 06/15/2020 2:18 PM CDT Essential hypertension CREATININE / GFR Routine 06/15/2020 2:18 PM CDT Essential hypertension HEPATITIS C ANTIBODY, WITH REFLEX Routine 10/24/2017 2:20 PM STOCK HANDLER FLOORPERSON from Last 3 Months or Most Recently Relevant to Health Maintenance Results * Lipid Panel and Direct LDL(If Needed) (10/30/2020 9:28 AM STOCK HANDLER FLOORPERSON) Cholesterol 143 0 - 199 mg/dL 10/30/2020 8:27 PM STOCK HANDLER FLOORPERSON [facility] Triglyceride 65 <=149 mg/dL 10/30/2020 8:27 PM STOCK HANDLER FLOORPERSON [email or web address] HDL Cholesterol 50 >=40 mg/dL 10/30/2020 8:27 PM STOCK HANDLER FLOORPERSON [email or web address] LDL, Calculated 80 <130 mg/dL 10/30/2020 8:27 PM STOCK HANDLER FLOORPERSON [facility] Non HDL Chol, Calculated 93 mg/dL 10/30/2020 8:27 PM STOCK HANDLER FLOORPERSON [email or web address] Cholesterol/HDL Ratio 2.9 10/30/2020 8:27 PM STOCK HANDLER FLOORPERSON [email or web address] Hours Fasting 12 10/30/2020 8:27 PM STOCK HANDLER FLOORPERSON [employer] [place] Blood Venipuncture / Unknown 10/30/2020 9:28 AM STOCK HANDLER FLOORPERSON 10/30/2020 9:28 AM STOCK HANDLER FLOORPERSON Diane Flower PA-C LAB_1 [facility] [address] [address], [facility] [[email or web address]] [phone] WELL AT WORK [address] [address], [facility] [[email or web address]] [phone] * Creatinine / GFR (06/15/2020 2:18 PM CDT) Creatinine 1.08 0.73 - 1.18 mg/dL 06/15/2020 8:11 PM CDT [facility] GFR, Estimated >60 >60 mL/min/1. 73m2 06/15/2020 8:11 PM CDT [facility] Blood Venipuncture / Unknown 06/15/2020 2:18 PM CDT 06/15/2020 2:18 PM CDT Diane Flower PA-C LAB_1 Performing Organization Address City/[facility]/ZIP Co de Phone Number [facility] [address] [place] [address], [facility] [email or web address]] [phone] * Sodium (06/15/2020 2:18 PM CDT) Sodium 139 136 - 145 mmol/L 06/15/2020 8:11 PM CDT [facility] Blood Venipuncture / Unknown 06/15/2020 2:18 PM CDT 06/15/2020 2:18 PM CDT Diane Flower PA-C LAB_1 [facility] [address] [place] [address], [facility] [[email or web address]] [phone] * Potassium (06/15/2020 2:18 PM CDT) Potassium 4.2 3.5 - 5.1 mmol/L 06/15/2020 8:11 PM CDT [facility] Blood Venipuncture / Unknown 06/15/2020 2:18 PM CDT 06/15/2020 2:18 PM CDT Diane Edwige Flower PA-C LAB_1 Performing Organization Address City/[facility]/ZIP Co de Phone Number [employer] [facility] [address] [place] [address], [facility] [[email or web address]] [phone] * Hepatitis C Antibody, with Reflex (10/24/2017 2:20 PM STOCK HANDLER FLOORPERSON) Anti-HCV Negative (Non Reactive) [facility] Comment: Antibodies to HCV not detected. Does not exclude the possibility of exposure to HCV. 10/24/2017 2:20 PM STOCK HANDLER FLOORPERSON 10/24/2017 8:27 PM STOCK HANDLER FLOORPERSON Narrative [facility] - 10/24/2017 9:13 PM STOCK HANDLER FLOORPERSON Performed at [facility], [address] [place] [address] Diane Flower PA-C LAB_1 Performing Organization Address [facility] Co de Phone Number [facility] [employer] [phone] from Last 3 Months or Most Recently Relevant to Health Maintenance Care Teams Eyeglass Lens Cutter Relationship Specialty Start Date End Date John Myeer MD PCP - General Family Practice 06/01/20
--- OUTSIDE RECORDS SUMMARY | 2024-10-11 10:04 | XMS_ITS | Clinical Summary ---
Author Organization [facility] Address [place], [place] [address] Care Team Providers Care Reproduction Artist Name Role Phone Dotty Matias Primary Care [...] 61 08/23/2013 10:39 AM CDT Temperature 36.4 C (97.5 F) 08/23/2013 10:39 AM CDT Respiratory Rate - [...] booster 07/08/2023 07/08/2013 COVID-19 vaccine series (3 - 2023- season) 2024 02/13/2021, 01/23/2021 Influenza for age [...] CDT) CHOLESTEROL,TOTAL 223(H) 110 - 199 mg/dL [facility] TRIGLYCERIDES 83 40 - 149 mg/dL [facility] HDL CHOLESTEROL 48 >40 mg/dL [facility] CHOL/HDL RATIO 4.65(H) <4.51 [facility] LDL CHOLESTEROL 158(H) <131 mg/dL [facility] PATIENT STATUS Fasting [facility] Blood specimen (specimen) BLOOD SPECIMEN / Unknown 07/02/2011 9:01 AM CDT 07/02/2011 8:55 AM CDT Bear Lainez MD CHEMISTRY [facility] INTERNAL ZIP [phone] [address] from Last 3 Months or Most Recently Relevant to Health Maintenance Care Teams Reproduction Artist Relationship Specialty Start Date End Date Dotty Matias PA [address] [address] PCP - General Family Practice 09/04/11
--- NOTE | 2024-10-11 10:15 | CRLHL7_ITS ---
For Patients: As a result of the Century Cures Act, medical imaging exams and procedure reports are released immediately into your electronic medical record. You may view this report before your referring provider. If you have questions, please contact your health care provider. INDICATION: Abnormal levels of other serum enzymes COMPARISON: none TECHNIQUE: Real time gilman scale imaging and color Doppler analysis was performed of the right upper quadrant. FINDINGS: The visualized liver measures 14.0 cm. Liver echotexture is coarsened and increased. No intrahepatic mass. There is a normal appearance of the hepatic IVC and proximal abdominal aorta. There is no evidence of ascites. The gallbladder is of normal size and there is no evidence of intraluminal stones or sludge. The gallbladder wall measures 1.7 mm in thickness. The common bile duct is of normal size and measures 4.8 mm in diameter at the level of the ventura hepatis. The pancreas is not visualized. There is no evidence of a stone or hydronephrosis within the right kidney. The right kidney measures 10.0 cm in length. IMPRESSION: Diffuse hepatic steatosis. Gallbladder normal. Dictated by Dameon Lopez MD @ 10/11/2024 2:44:49 PM (Electronically Signed)
== END 2024-10-11 10:04 | disposition home or self-care (01) ==
PROVIDERS: PCP Family Medicine; Visit Provider Family Medicine
DX: R74.8 Abnormal levels of other serum enzymes (principal); K76.0 Fatty (change of) liver, not elsewhere classified
CPT/HCPCS: 76705

== ENCOUNTER 2025-09-14 08:37 | Outpatient (CLI) | payer MEDICARE, SELFPAY | END 2025-09-14 08:38 | disposition home or self-care (01) | PROVIDERS: PCP Family Medicine; Visit Provider Family Medicine | DX: E78.2 Mixed hyperlipidemia (principal); I10 Essential (primary) hypertension; R74.01 Elevation of levels of liver transaminase levels; N40.0 Benign prostatic hyperplasia without lower urinary tract symptoms; Z12.5 Encounter for screening for malignant neoplasm of prostate | CPT/HCPCS: 80048; 80061; 80076; G0103 ==